=== PATIENT | female | born 1955 | race Caucasian/White ===

== ENCOUNTER 2022-08-20 23:39 | Observation (INO) | payer MEDICARE, SELFPAY ==
[2022-08-20 23:51] VITALS: BP 209/80; PULSE 51; RESP 20; TEMP 36.4; O2SAT 93; BMI 33.5
[2022-08-20 23:52] VITALS: O2SAT 93
[2022-08-20 23:53] VITALS: BP 209/80; PULSE 51; PULSE 57; RESP 14; RESP 15; O2SAT 93
[2022-08-21] VITALS (24 sets, daily range): BP systolic 140–193; BP diastolic 60–86; PULSE 45–85; RESP 13–26; TEMP 36.3–36.7; O2SAT 86–98; BMI 32.4
--- NOTE | 2022-08-21 00:34 | ED_ITS ---
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 Presents with complaint of dizziness. Room spinning. Worse when she moves her head. No visual complaint. No fever. Yesterday states it was mild but today is constant. Nausea asscicated with the dizziness MD elicited complaint: Reports dizziness Related Data Home Medications Medication Instructions Recorded Confirmed atorvastatin 40 mg tablet 40 mg PO DAILY 08/20/22 08/20/22 clopidogrel 75 mg tablet 75 mg PO DAILY 08/20/22 08/20/22 lisinopril 20 mg tablet 20 mg PO DAILY 08/20/22 08/20/22 Allergies Allergy/AdvReac Type Severity Reaction Status Date / Time No Known Drug Allergies Allergy Verified 08/20/22 23:56 Review of Systems ROS Status of ROS 10 or more systems reviewed and unremarkable except as noted in history and below Gastrointestinal Reports: nausea Neurological Reports: dizziness and vertigo [facility] Medical History (Updated 08/21/22 @ 03:14 by David Henson MD) Social History Smoking status: Never smoker Exam Constitutional Vital Signs - 24 hr 08/20/22 23:51 08/20/22 23:52 08/20/22 23:53 Temperature 97.6 F Pulse Rate 51 L Pulse Rate [Monitor] 51 L Respiratory Rate 20 15 Blood Pressure 209/80 H Blood Pressure [Left Arm] 209/80 H Pulse Oximetry 93 L 93 L Oxygen Delivery Method Room Air Oxygen Delivery Flow Rate 08/20/22 23:53 08/21/22 00:00 08/21/22 00:15 Temperature Pulse Rate 57 L 58 L 47 L Pulse Rate [Monitor] Respiratory Rate 14 18 16 Blood Pressure 170/70 H 176/76 H Blood Pressure [Left Arm] Pulse Oximetry 93 L 94 L 90 L Oxygen Delivery Method Oxygen Delivery Flow Rate 08/21/22 00:15 08/21/22 00:16 08/21/22 00:15 Temperature Pulse Rate 48 L Pulse Rate [Monitor] Respiratory Rate 21 Blood Pressure 176/76 H Blood Pressure [Left Arm] Pulse Oximetry 90 L 93 L 90 L Oxygen Delivery Method Room Air Nasal Cannula Oxygen Delivery Flow Rate 1 1 08/21/22 00:31 08/21/22 00:45 08/21/22 01:04 Temperature Pulse Rate 46 L Pulse Rate [Monitor] Respiratory Rate 23 Blood Pressure 153/60 H 161/86 H Blood Pressure [Left Arm] Pulse Oximetry 91 L 95 Oxygen Delivery Method Oxygen Delivery Flow Rate 08/21/22 01:10 08/21/22 01:15 08/21/22 01:15 Temperature Pulse Rate 45 L 48 L 47 L Pulse Rate [Monitor] Respiratory Rate 20 18 22 Blood Pressure 166/61 H Blood Pressure [Left Arm] Pulse Oximetry 93 L 94 L 93 L Oxygen Delivery Method Oxygen Delivery Flow Rate 08/21/22 01:30 08/21/22 02:55 08/21/22 01:30 Temperature Pulse Rate 51 L 61 Pulse Rate [Monitor] Respiratory Rate 16 22 Blood Pressure 166/63 H 166/63 H Blood Pressure [Left Arm] Pulse Oximetry 95 97 94 L Oxygen Delivery Method Room Air Oxygen Delivery Flow Rate 08/21/22 01:45 08/21/22 02:01 08/21/22 02:15 Temperature Pulse Rate 48 L 54 L 54 L Pulse Rate [Monitor] Respiratory Rate 26 H 21 22 Blood Pressure 152/66 H 140/71 H 150/67 H Blood Pressure [Left Arm] Pulse Oximetry 87 L 86 L 93 L Oxygen Delivery Method Oxygen Delivery Flow Rate 08/21/22 02:31 08/21/22 02:46 Temperature Pulse Rate 56 L 56 L Pulse Rate [Monitor] Respiratory Rate 19 16 Blood Pressure 193/65 H 175/66 H Blood Pressure [Left Arm] Pulse Oximetry 90 L 91 L Oxygen Delivery Method Oxygen Delivery Flow Rate Common normals: no apparent distress, average body habitus, oriented x3, healthy appearing, alert and well nourished [facility] Common normals: normocephalic and head/scalp atraumatic Eye Common normals: PERRL, EOMs intact bilaterally and conjunctivae normal Respiratory Common normals: normal respiratory effort, no retractions, no use of accessory muscles and clear to auscultation bilaterally Cardio Other: bradycardia GI Common normals: Normal to inspection, nondistended, normoactive bowel sounds present, soft to palpation and non-tender Extremity Common normals: normal to inspection, full ROM and no joint enlargement Neuro Common normals: oriented x3, CN's II-XII intact bilaterally, moves all extremities and no focal motor deficits Psych Appearance: grossly normal Course Vital Signs Vital signs: Vital Signs Temperature 97.6 F 08/20/22 23:51 Pulse Rate 51 L 08/20/22 23:51 Respiratory Rate 20 08/20/22 23:51 Blood Pressure 209/80 H 08/20/22 23:51 Pulse Oximetry 93 L 08/20/22 23:51 Oxygen Delivery Method Room Air 08/20/22 23:51 Temperature 97.6 F 08/20/22 23:51 Pulse Rate 56 L 08/21/22 02:46 Respiratory Rate 16 08/21/22 02:46 Blood Pressure 175/66 H 08/21/22 02:46 Pulse Oximetry 97 08/21/22 02:55 Oxygen Delivery Method Room Air 08/21/22 02:55 Oxygen Delivery Flow Rate 1 08/21/22 00:16 MDM - Dizziness MDM Narrative Medical decision making narrative: patient presents with acute vertigo. CT brain neg. Treated with ativan and ativert and she remains dizzy. Only able to sit up for a short while and then has to lay back down due to dizziness. Discussed with the hospitalist and will plan obs admission Lab Data Labs: Lab Results 08/21/22 Range/Units 00:00 WBC 8.5 (4.0-11.0) 10^3/uL RBC 4.77 (4.20-5.40) 10^6/uL Hgb 14.5 (12.0-16.0) g/dL Hct 43.2 (36.0-48.0) % MCV 90.6 (81.0-99.0) fL MCH 30.4 (26.7-34.0) pg MCHC 33.6 (29.9-35.2) g/dL RDW 13.6 (11.0-15.0) % Plt Count 245 (150-450) 10^3/uL MPV 10.6 (9.5-13.5) fL Neut % (Auto) 52.2 (43.0-75.0) % Lymph % (Auto) 37.7 (20.5-60.0) % [place] % (Auto) 7.2 (1.7-12.0) % Eos % (Auto) 2.5 (0.9-7.0) % Baso % (Auto) 0.2 (0.2-2.0) % Neut # (Auto) 4.4 (1.4-6.5) 10^3/uL Lymph # (Auto) 3.2 (1.2-3.8) 10^3/uL [place] # (Auto) 0.6 (0.3-0.8) 10^3/uL Eos # (Auto) 0.2 (0.0-0.7) 10^3/uL Baso # (Auto) 0.0 (0.0-0.1) 10^3/uL Abs Immat Gran (auto) 0.02 (0.00-0.03) 10^3/uL Imm/Tot Granulo (auto) 0.2 (0.0-0.5) % D-Dimer 0.36 (<=0.59) mg/L FEU Sodium 144 (136-145) mmol/L Potassium 3.3 L (3.5-5.1) mmol/L Chloride 104 (98-107) mmol/L Carbon Dioxide 31.4 (21.0-32.0) mmol/L Anion Gap 11.9 BUN 14.0 (7.0-18.0) mg/dL Creatinine 0.65 (0.55-1.02) mg/dL Est GFR ( Amer) >60 (>=60) Est GFR (Non-Af Amer) >60 (>=60) BUN/Creatinine Ratio 21.5 Glucose 119 H (74-106) mg/dL Calcium 9.6 (8.5-10.1) mg/dL Troponin I High Sens 5.0 (4.0-51.3) pg/mL NT-Pro-B Natriuret Pep 147.0 (<=900.0) pg/mL Discharge Plan Discharge Chief Complaint: Dizziness Clinical Impression: Vertigo Patient Disposition: Admitted As Inpatient
--- NOTE | 2022-08-21 00:38 | ECG_ITS ---
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
--- NOTE | 2022-08-21 00:38 | CT_ITS ---
The [address] [address] Patient Name: JEAN GASTON MRN: [id number] date: 1955 Sex: F Assigned Patient Location: ER Current Patient Location: ER Accession/Order Number: [id number] Exam Date: 08/21/2022 00:51 Report Date: 08/21/2022 01:29 At the request of: SAMUEL ANDRE Procedure: CT head/brain wo con INDICATION: 67 years old; Female. Dizziness. TECHNIQUE: CT Head (ax/cor/sag reformats). Ionizing radiation dose reduced via iterative reconstruction/FBP blend and body size kV/mA adjustment. Comparison: Head CT dated 08/27/2021. FINDINGS: POSTOPERATIVE CHANGES: None. BRAIN PARENCHYMA: No focal lesions. No mass effect. No midline shift or herniation. No intraparenchymal or extra-axial hemorrhage. Normal chaney/white differentiation. VENTRICLES/EXTRA-AXIAL SPACES: Normal for patient's age. SINUSES/MASTOIDS: Visualized sinuses are clear. Mastoid air cells are clear. MSK: No displaced or depressed calvarial fracture. OTHER: No hyperdense intraluminal thrombus is seen. IMPRESSION: 1. No acute intracranial abnormality. No hemorrhage or mass effect. If there is suspicion for intracranial infarction, then MRI with diffusion imaging would be more sensitive. Electronically authenticated by: ANA NGUYEN Date: 08/21/2022 01:29
--- NOTE | 2022-08-21 00:38 | XR_ITS ---
[address] [address] Patient Name: JEAN GASTON MRN: [id number] date: 1955 Sex: F Assigned Patient Location: ER Current Patient Location: ER Accession/Order Number: [id number] Exam Date: 08/21/2022 00:51 Report Date: 08/21/2022 01:19 At the request of: SAMUEL ANDRE Procedure: XR chest 1V EXAM: XR chest 1V HISTORY: dizziness COMPARISON: Chest x-ray 04/18/2019 TECHNIQUE: Single frontal view chest x-ray FINDINGS: No lung consolidation, large pleural effusions, pneumothorax, or acute bony abnormality. Cardiac size is unremarkable. Calcified plaque at the thoracic aortic knob. IMPRESSION: No radiographic evidence for acute chest abnormality. Electronically authenticated by: SAIDA CESAR Date: 08/21/2022 01:19
[2022-08-21 00:54] LABS: Basophils Percent Auto 0.2 % (0.2-2.0); Eosinophils Absolute Auto 0.2 10^3/uL (0.0-0.7); Eosinophils Percent Auto 2.5 % (0.9-7.0); Hematocrit 43.2 % (36.0-48.0); Hemoglobin 14.5 g/dL (12.0-16.0); Immature Granulocytes Abs Auto 0.02 10^3/uL (0.00-0.03); Immature Granulocytes Pct Auto 0.2 % (0.0-0.5); Lymphocytes Absolute Auto 3.2 10^3/uL (1.2-3.8); Lymphocytes Percent Auto 37.7 % (20.5-60.0); Mean Corpuscular HGB Conc 33.6 g/dL (29.9-35.2); Mean Corpuscular Hemoglobin 30.4 pg (26.7-34.0); Mean Corpuscular Volume 90.6 fL (81.0-99.0); Mean Platelet Volume 10.6 fL (9.5-13.5); Monocytes Absolute Auto 0.6 10^3/uL (0.3-0.8); Monocytes Percent Auto 7.2 % (1.7-12.0); Neutrophils Absolute Auto 4.4 10^3/uL (1.4-6.5); Neutrophils Percent Auto 52.2 % (43.0-75.0); Platelet Count 245 10^3/uL (150-450); Red Blood Count 4.77 10^6/uL (4.20-5.40); Red Cell Distribution Width 13.6 % (11.0-15.0); White Blood Count 8.5 10^3/uL (4.0-11.0)
[2022-08-21 01:01] LABS: D Dimer 0.36 mg/L FEU (<=0.59)
[2022-08-21 01:10] LABS: Anion Gap 11.9; BUN Creatinine Ratio 21.5; Calcium 9.6 mg/dL (8.5-10.1); Carbon Dioxide 31.4 mmol/L (21.0-32.0); Chloride 104 mmol/L (98-107); Estimated GFR (African America >60 (>=60); Estimated GFR (Non-African Ame >60 (>=60); Glucose 119 mg/dL (74-106); Potassium 3.3 mmol/L (3.5-5.1); Sodium 144 mmol/L (136-145)
[2022-08-21] MEDS: LORAZEPAM 2 MG/ML 1 ML VIAL 0.5 MG IV (01:33)
[2022-08-21] MEDS: MECLIZINE HCL 12.5 MG TABLET 25 MG PO ×3 (01:33→14:48)
[2022-08-21] MEDS: 0.9 % SODIUM CHLORIDE 1,000 ML 1000 ML IV (02:14)
--- NOTE | 2022-08-21 02:56 | PC.NURSE ---
pt placed on room air at this time to see how she does
--- NOTE | 2022-08-21 05:58 | W.PM.TELEPN ---
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 She denies any history of vertigo in the past, denies any ringing in the ears, she has chronic left-sided headaches that are unchanged, denies any visual field deficits, speech disturbance, facial droop, focal weakness, denies chest pain, palpitations, shortness of breath, syncope, seizures, abdominal pain, with her vertigo he gets worse with her head movement better if she states still, denies any bleeding, change in bowel urinary habits but reports some nausea when she has a vertigo home. Denies any change in her medications lately. Denies any falls lately or head trauma. Upon arrival to the ER patient is slightly hypertensive, afebrile, CT head without acute intracranial abnormalities per ER verbal report. Meclizine was given with minimal relief hospital Medicine was consulted for admission. Allergies: No known drug allergies Home medications aspirin daily atorvastatin 40 daily, Plavix 75 daily, lisinopril 20 daily past medical history: Hypertension, hypercholesterolemia, cerebrovascular accident, obesity past surgical history: Many years ago left lower extremity fracture with milagros placement review of systems: all 14 review of systems negative except for HPI physical exam: Vitals: BP 182/76, pulse 62, RR 18, temp 97.4?, 94% on room air, weight 96.8 kg general: Lying in bed, no acute distress, alert and oriented x3, appears stated age HEENT: Normocephalic, atraumatic, EOMI, trachea midline CVS: Regular rate and rhythm, no peripheral edema lungs: Bilateral air entry, normal respiratory effort abdomen: Soft, nontender, obese, no visible masses neuro: Close her eyes with head movement unsure if underlying nystagmus present, moves all extremities, no facial droop, reports decreased sensation to light touch left side body. Psych: Cooperative, alert and oriented, pleasant, normal mood Exam Constitutional Vital Signs - 24 hr 08/20/22 23:51 08/20/22 23:52 08/20/22 23:53 Temperature 97.6 F Pulse Rate 51 L Pulse Rate [Monitor] 51 L Respiratory Rate 20 15 Blood Pressure 209/80 H Blood Pressure [Left Arm] 209/80 H Blood Pressure [Right Arm] Pulse Oximetry 93 L 93 L Oxygen Delivery Method Room Air Oxygen Delivery Flow Rate 08/20/22 23:53 08/21/22 00:00 08/21/22 00:15 Temperature Pulse Rate 57 L 58 L 47 L Pulse Rate [Monitor] Respiratory Rate 14 18 16 Blood Pressure 170/70 H 176/76 H Blood Pressure [Left Arm] Blood Pressure [Right Arm] Pulse Oximetry 93 L 94 L 90 L Oxygen Delivery Method Oxygen Delivery Flow Rate 08/21/22 00:15 08/21/22 00:16 08/21/22 00:15 Temperature Pulse Rate 48 L Pulse Rate [Monitor] Respiratory Rate 21 Blood Pressure 176/76 H Blood Pressure [Left Arm] Blood Pressure [Right Arm] Pulse Oximetry 90 L 93 L 90 L Oxygen Delivery Method Room Air Nasal Cannula Oxygen Delivery Flow Rate 1 1 08/21/22 00:31 08/21/22 00:45 08/21/22 01:04 Temperature Pulse Rate 46 L Pulse Rate [Monitor] Respiratory Rate 23 Blood Pressure 153/60 H 161/86 H Blood Pressure [Left Arm] Blood Pressure [Right Arm] Pulse Oximetry 91 L 95 Oxygen Delivery Method Oxygen Delivery Flow Rate 08/21/22 01:10 08/21/22 01:15 08/21/22 01:15 Temperature Pulse Rate 45 L 48 L 47 L Pulse Rate [Monitor] Respiratory Rate 20 18 22 Blood Pressure 166/61 H Blood Pressure [Left Arm] Blood Pressure [Right Arm] Pulse Oximetry 93 L 94 L 93 L Oxygen Delivery Method Oxygen Delivery Flow Rate 08/21/22 01:30 08/21/22 02:55 08/21/22 01:30 Temperature Pulse Rate 51 L 61 Pulse Rate [Monitor] Respiratory Rate 16 22 Blood Pressure 166/63 H 166/63 H Blood Pressure [Left Arm] Blood Pressure [Right Arm] Pulse Oximetry 95 97 94 L Oxygen Delivery Method Room Air Oxygen Delivery Flow Rate 08/21/22 01:45 08/21/22 02:01 08/21/22 02:15 Temperature Pulse Rate 48 L 54 L 54 L Pulse Rate [Monitor] Respiratory Rate 26 H 21 22 Blood Pressure 152/66 H 140/71 H 150/67 H Blood Pressure [Left Arm] Blood Pressure [Right Arm] Pulse Oximetry 87 L 86 L 93 L Oxygen Delivery Method Oxygen Delivery Flow Rate 08/21/22 02:31 08/21/22 02:46 08/21/22 03:57 Temperature 97.4 F L Pulse Rate 56 L 56 L 61 Pulse Rate [Monitor] Respiratory Rate 19 16 18 Blood Pressure 193/65 H 175/66 H Blood Pressure [Left Arm] Blood Pressure [Right Arm] 182/76 H Pulse Oximetry 90 L 91 L 94 L Oxygen Delivery Method Room Air Oxygen Delivery Flow Rate 08/21/22 03:57 08/21/22 02:46 08/21/22 03:00 Temperature Pulse Rate 56 L 55 L Pulse Rate [Monitor] 61 Respiratory Rate 18 17 23 Blood Pressure 175/66 H 190/86 H Blood Pressure [Left Arm] Blood Pressure [Right Arm] Pulse Oximetry 94 L 94 L 98 Oxygen Delivery Method Room Air Oxygen Delivery Flow Rate 08/21/22 03:16 08/21/22 03:31 Temperature Pulse Rate 48 L Pulse Rate [Monitor] Respiratory Rate 13 Blood Pressure 155/81 H 183/75 H Blood Pressure [Left Arm] Blood Pressure [Right Arm] Pulse Oximetry 94 L Oxygen Delivery Method Oxygen Delivery Flow Rate Progress Note: Objective Labs Labs: Short CBC 08/21/22 Range/Units 00:00 WBC 8.5 (4.0-11.0) 10^3/uL Hgb 14.5 (12.0-16.0) g/dL Hct 43.2 (36.0-48.0) % Plt Count 245 (150-450) 10^3/uL BMP 08/21/22 00:00 Sodium 144 Potassium 3.3 L Chloride 104 Carbon Dioxide 31.4 BUN 14.0 Creatinine 0.65 Glucose 119 H Calcium 9.6 Progress Note: A&P Assessment and Plan (1) Vertigo: Assessment and Plan: admit to telemetry bed with neuro checks, suspect benign positional vertigo. Supportive care with meclizine, thiamine, Phenergan and Zofran as needed. Vestibular therapy. Check brain MRI rule out posterior CVA. Fall precautions. (2) High blood pressure: Assessment and Plan: Order home lisinopril with as needed hydralazine. Consider adding low-dose Norvasc and monitor and vitals closely, need blood pressure monitor upon discharge (3) Stroke: Assessment and Plan: personal history of CVA on aspirin, Plavix and Lipitor. Need better blood pressure management control. Check A1c level, encourage weight loss. Check brain MRI Plan DVT prophylaxis-Lovenox medications reconciliation form completed goals of care-full code communications: Discussed with emergency room physician, bedside nurse, patient updated about plan of care, all questions answered to their satisfaction disposition -home when medically stable telemedicine clause: as a provider of this telehealth evaluation requested by the patient's evaluating physician. I attest that I introduced myself to the patient. Provided my credentials and determined that telemedicine via real-time 2 way interactive audio and video platform his and appropriate and effective means of providing this service. I reviewed the patient's chart and had a discussion with the member of the patient's treatment team. The patient and I mutually agreed with continuation of this evaluation via telemedicine. The patient consented for the telemedicine evaluation. This virtual encounter was taking place from [place]. The encounter was approximately 30 minutes. The nurse was present during the entire time of the encounter and was able to move the stethoscope and appropriate directions. The patient was evaluated at 5:30 a.m. Fall Risk Details Morales Fall Scale Risk Level: High Fall Risk Current Medications: Current Medications Acetaminophen (Acetaminophen 325 Mg Tablet) 650 mg PO Q6H PRN PRN Reason: Fever Enoxaparin Sodium (Enoxaparin Sodium 40 Mg/0.4 Ml Syringe) 40 mg SUBQ QD JACOBO Famotidine (Famotidine/Pf 20 Mg/2 Ml Vial) 20 mg IV Q12H JACOBO Meclizine HCl (Meclizine Hcl 12.5 Mg Tablet) 25 mg PO Q6H PRN PRN Reason: Vertigo Ondansetron HCl (Ondansetron Pf 4 Mg/2 Ml Vial) 4 mg IV Q6H PRN PRN Reason: Nausea And Vomiting Promethazine HCl (Promethazine Hcl 25 Mg Tablet) 25 mg PO Q6H PRN PRN Reason: Nausea And Vomiting Thiamine Mononitrate (Thiamine Mononitrate (Vit B1) 100 Mg Tablet) 100 mg PO QD JACOBO Time Spent With Patient Time: Total time spent is greater than 50% in coordination of care (as documented) at patient's floor/unit and/or counseling patient: Time with patient: 25 - 35 minutes Telemedicine Attestation Telemedicine Attestation I conducted this encounter from [ [place]] via secure live, [id number] video conference with the patient, CHARGE TEST-CHARGES located at [facility] with [ telemedicine]. Prior to the interview, the risks and benefits of telemedicine were discussed with the patient and verbal consent was obtained.
[2022-08-21] MEDS: ENOXAPARIN SODIUM 40 MG/0.4 ML SYRINGE SUBQ (06:52)
[2022-08-21] MEDS: AMLODIPINE BESYLATE 5 MG TABLET PO (06:55)
[2022-08-21] MEDS: THIAMINE MONONITRATE (VIT B1) 100 MG TABLET PO (06:55)
[2022-08-21] MEDS: FAMOTIDINE/PF 20 MG/2 ML VIAL IV (06:56)
--- NOTE | 2022-08-21 09:10 | P.HP_ITS ---
H&P: HPI History of Present Illness Chief complaint: DIZZINESS Narrative: Patient presented to the emergency room with increasing dizziness, vertigo type, patient does have a history of CVA in the past. Did not have dizziness like this with her previous CVA. She has resultant left-sided weakness from the previous CVA. [facility] Medical History (Updated 08/21/22 @ 04:45 by Karin Urias) Surgical History (Updated 08/21/22 @ 04:45 by Karin Urias) Social History Smoking status: Never smoker Meds Home Medications and Allergies Home Medications Medication Instructions Recorded Confirmed Type atorvastatin 40 mg tablet 40 mg PO DAILY 08/20/22 08/21/22 History clopidogrel 75 mg tablet 75 mg PO DAILY 08/20/22 08/21/22 History lisinopril 20 mg tablet 20 mg PO DAILY 08/20/22 08/21/22 History aspirin 81 mg tablet,delayed 81 mg PO DAILY 08/21/22 08/21/22 History release (Adult Low Dose Aspirin) carvedilol 6.25 mg tablet 6.25 mg PO BID #60 tabs 08/21/22 Rx meclizine 12.5 mg tablet 25 mg PO Q6H #20 tabs 08/21/22 Rx Allergies Allergy/AdvReac Type Severity Reaction Status Date / Time No Known Drug Allergies Allergy Verified 08/21/22 04:37 Exam Constitutional Vital Signs - 24 hr 08/20/22 23:51 08/20/22 23:52 08/20/22 23:53 Temperature 97.6 F Pulse Rate 51 L Pulse Rate [Monitor] 51 L Respiratory Rate 20 15 Blood Pressure 209/80 H Blood Pressure [Left Arm] 209/80 H Blood Pressure [Right Arm] Pulse Oximetry 93 L 93 L Oxygen Delivery Method Room Air Oxygen Delivery Flow Rate 08/20/22 23:53 08/21/22 00:00 08/21/22 00:15 Temperature Pulse Rate 57 L 58 L 47 L Pulse Rate [Monitor] Respiratory Rate 14 18 16 Blood Pressure 170/70 H 176/76 H Blood Pressure [Left Arm] Blood Pressure [Right Arm] Pulse Oximetry 93 L 94 L 90 L Oxygen Delivery Method Oxygen Delivery Flow Rate 08/21/22 00:15 08/21/22 00:16 06/08/23 00:15 Temperature Pulse Rate 48 L Pulse Rate [Monitor] Respiratory Rate 21 Blood Pressure 176/76 H Blood Pressure [Left Arm] Blood Pressure [Right Arm] Pulse Oximetry 90 L 93 L 90 L Oxygen Delivery Method Room Air Nasal Cannula Oxygen Delivery Flow Rate 1 1 08/21/22 00:31 08/21/22 00:45 08/21/22 01:04 Temperature Pulse Rate 46 L Pulse Rate [Monitor] Respiratory Rate 23 Blood Pressure 153/60 H 161/86 H Blood Pressure [Left Arm] Blood Pressure [Right Arm] Pulse Oximetry 91 L 95 Oxygen Delivery Method Oxygen Delivery Flow Rate 08/21/22 01:10 08/21/22 01:15 08/21/22 01:15 Temperature Pulse Rate 45 L 48 L 47 L Pulse Rate [Monitor] Respiratory Rate 20 18 22 Blood Pressure 166/61 H Blood Pressure [Left Arm] Blood Pressure [Right Arm] Pulse Oximetry 93 L 94 L 93 L Oxygen Delivery Method Oxygen Delivery Flow Rate 08/21/22 01:30 08/21/22 02:55 08/21/22 01:30 Temperature Pulse Rate 51 L 61 Pulse Rate [Monitor] Respiratory Rate 16 22 Blood Pressure 166/63 H 166/63 H Blood Pressure [Left Arm] Blood Pressure [Right Arm] Pulse Oximetry 95 97 94 L Oxygen Delivery Method Room Air Oxygen Delivery Flow Rate 08/21/22 01:45 08/21/22 02:01 08/21/22 02:15 Temperature Pulse Rate 48 L 54 L 54 L Pulse Rate [Monitor] Respiratory Rate 26 H 21 22 Blood Pressure 152/66 H 140/71 H 150/67 H Blood Pressure [Left Arm] Blood Pressure [Right Arm] Pulse Oximetry 87 L 86 L 93 L Oxygen Delivery Method Oxygen Delivery Flow Rate 08/21/22 02:31 08/21/22 02:46 08/21/22 03:57 Temperature 97.4 F L Pulse Rate 56 L 56 L 61 Pulse Rate [Monitor] Respiratory Rate 19 16 18 Blood Pressure 193/65 H 175/66 H Blood Pressure [Left Arm] Blood Pressure [Right Arm] 182/76 H Pulse Oximetry 90 L 91 L 94 L Oxygen Delivery Method Room Air Oxygen Delivery Flow Rate 08/21/22 03:57 08/21/22 02:46 08/21/22 03:00 Temperature Pulse Rate 56 L 55 L Pulse Rate [Monitor] 61 Respiratory Rate 18 17 23 Blood Pressure 175/66 H 190/86 H Blood Pressure [Left Arm] Blood Pressure [Right Arm] Pulse Oximetry 94 L 94 L 98 Oxygen Delivery Method Room Air Oxygen Delivery Flow Rate 08/21/22 03:16 08/21/22 03:31 Temperature Pulse Rate 48 L Pulse Rate [Monitor] Respiratory Rate 13 Blood Pressure 155/81 H 183/75 H Blood Pressure [Left Arm] Blood Pressure [Right Arm] Pulse Oximetry 94 L Oxygen Delivery Method Oxygen Delivery Flow Rate HENMT Common normals: moist oral mucous membranes Eye General eye: normal appearance of both eyes and other (Nystagmus on bilateral conjugate gaze) Chest Common normals: inspection of chest normal Respiratory Common normals: no retractions, no use of accessory muscles and clear to auscultation bilaterally Cardio Common normals: regular rate, regular rhythm and S1 normal heart sound Neuro Common normals: oriented x3 (Definite left-sided weakness but that has been unchanged from her prio) Results Labs Labs: Short CBC 08/21/22 Range/Units 00:00 WBC 8.5 (4.0-11.0) 10^3/uL Hgb 14.5 (12.0-16.0) g/dL Hct 43.2 (36.0-48.0) % Plt Count 245 (150-450) 10^3/uL BMP 08/21/22 00:00 Sodium 144 Potassium 3.3 L Chloride 104 Carbon Dioxide 31.4 BUN 14.0 Creatinine 0.65 Glucose 119 H Calcium 9.6 Assessment and Plan Assessment and Plan (1) Vertigo: (2) High blood pressure: (3) Stroke: Plan Vertigo type symptoms, not near syncope, not significantly improved in ER-still concerning for posterior fossa old CVA-check MRI scan of brain, physical therapy to work with patient, try meclizine [id number], 1 dose of steroids Uncontrolled hypertension-continue with home medications plus increase with the addition of Coreg and as needed hydralazine Hypokalemia-supplement We will check MRI scanIn physical therapy to work with patient, if improved she can be discharged home in improving condition. Medications see list. Follow-up with your PCP as an outpatient.
[2022-08-21] MEDS: CLOPIDOGREL BISULFATE 75 MG TABLET PO (09:32)
[2022-08-21] MEDS: CARVEDILOL 6.25 MG TABLET PO (09:32)
[2022-08-21] MEDS: LISINOPRIL 20 MG TABLET PO (09:33)
[2022-08-21] MEDS: ASPIRIN 81 MG TABLET.DR PO (09:33)
[2022-08-21] MEDS: POTASSIUM CHLORIDE 10 MEQ ER TABLET 20 MEQ PO (09:34)
--- NOTE | 2022-08-21 09:42 | CM.NOTE ---
Rounds made with Dr. Jonas. Plan is for an MRI today along with PT evaluation. Currently Tamiko lives at home with son and family. She is independent in the home. No needs identified. Potential discharge later today.
--- NOTE | 2022-08-21 10:24 | SWNOTE1 ---
SW met with pt to discuss dc needs. Pt does live at home with her family (son, daughter in law). Pt does not use any medical equipment at home and stays on 1 floor. Pt is not current with any HH and at this time does not feel she needs any. Pt stated she is feeling a little better and was able to move her head side to side without feeling dizzy. At this time pt denies any needs at discharge. SW to follow as needed. SW reviewed BAXTER form with pt, she voiced understanding. Pt signed form, original given to patient and copy placed in chart.
[2022-08-21] MEDS: DEXAMETHASONE SODIUM PHOSPHATE 4 MG/ML VIAL 8 MG IV (10:38)
--- NOTE | 2022-08-21 11:40 | MR_ITS ---
The [address] [address] Patient Name: JEAN GASTON MRN: [id number] date: 1955 Sex: F Assigned Patient Location: MS Current Patient Location: MS Accession/Order Number: [id number] Exam Date: 08/21/2022 11:40 Report Date: 08/21/2022 13:12 At the request of: DEANDRE DUNCAN Procedure: MR head/brain wo con EXAM: MR head/brain wo con HISTORY: Vertigo, acute nausea with dizziness, history of prior stroke COMPARISON: CT head 08/21/2022. TECHNIQUE: Multiplanar multisequence MR imaging of the brain was performed without intravenous contrast. FINDINGS: Calvarium/skull base: No focal marrow replacing lesion suggestive of neoplasm. Orbits: Grossly unremarkable. Paranasal sinuses: Imaged portions clear Brain: No restricted diffusion. Minimal (less than 5) T2 FLAIR signal hyperintensities are present involving supratentorial white matter considered within normal limits for patient's age, most commonly relating to sequela small vessel disease. No mass effect, hemorrhage, or hydrocephalus. Grossly normal flow-related signal in the major intracranial arteries and dural sinuses. IMPRESSION: No acute intracranial process. Specifically no evidence for acute ischemia. Electronically authenticated by: AMILCAR YUAN Date: 08/21/2022 13:12
--- NOTE | 2022-08-27 10:22 | CM.DCFOLLOWU ---
Person spoke with: daughter in law How are you feeling? pt feeling well How is your pain? no pain or dizziness Did you understand your discharge instructions? yes Do you have any questions about your discharge instructions? No Were you given any prescriptions at discharge? Yes Were you able to get your prescriptions filled? Yes Do you understand how to take your medications as ordered? Yes Do you have any questions about your follow up appointment and do you plan to keep your follow up appointment? Follow up with PCP on 09/02/22 Is there anything else that you would like to discuss? No Questions/Comments/Concerns/Other:
== END 2022-08-21 17:58 | disposition home or self-care (01) ==
LOC: ER 08-21 03:14 → MS 08-21 03:54
PROVIDERS: Admitting Provider Family Medicine; Emergency Provider Internal Medicine; Visit Provider Internal Medicine
DX: R42 Dizziness and giddiness (principal); I10 Essential (primary) hypertension; E87.6 Hypokalemia; E78.00 Pure hypercholesterolemia, unspecified; E66.9 Obesity, unspecified; Z79.02 Long term (current) use of antithrombotics/antiplatelets; I69.954 Hemiplegia and hemiparesis following unspecified cerebrovascular disease affecting left non-dominant side; Z79.82 Long term (current) use of aspirin; Z79.899 Other long term (current) drug therapy; Z68.32 Body mass index [BMI] 32.0-32.9, adult
CPT/HCPCS: 36415; 70450; 70551; 71045; 80048; 83880; 84484; 85025; 85378; 93005; 96361; 96372; 96374; 96375; 97161; 97530; 99285; G0378; Q3014

== ENCOUNTER 2023-03-19 16:02 | Emergency (ER) | payer MEDICARE, SELFPAY ==
[2023-03-19 16:19] VITALS: BP 155/84; PULSE 64; RESP 18; TEMP 36.6; O2SAT 97; BMI 36.6
--- NOTE | 2023-03-19 16:35 | CT_ITS ---
The [address] [address] Patient Name: JEAN GASTON MRN: [id number] date: 1955 Sex: F Assigned Patient Location: ED.MAIN Current Patient Location: Accession/Order Number: [id number] Exam Date: 03/19/2023 16:48 Report Date: 03/19/2023 17:28 At the request of: DEWEY MARLEY Procedure: CT head/brain wo con CLINICAL HISTORY: fall. EXAMINATION: Unenhanced CT scan of the brain 03/19/2023. COMPARISON: Unenhanced CT scan of the brain 08/21/2022. TECHNIQUE: 3 mm axial images from skull base through vertex without intravenous contrast were obtained. Sagittal and coronal reconstructions were also performed. FINDINGS: The visualized intraorbital contents remain normal. There is mild prominence to ventricles, sulcal, cisternal spaces without discrete acute infarct. There is no intra or extra-axial hemorrhage. No definite mass, mass effect, or midline shift is seen. There is some soft tissue swelling overlying the left zygomatic arch and left frontal bone. The visualized paranasal sinuses and mastoid air cells appear normal. The calvarium appears intact. CT/CT head/brain wo con IMPRESSION: 1. No acute infarct, hemorrhage, or acute intracranial injury. 2. No definite skull fractures. 3. There is some soft tissue swelling and hematoma overlying the left frontal bone. Electronically authenticated by: TERESA ESTRADA Date: 03/19/2023 17:28
--- NOTE | 2023-03-19 16:35 | CT_ITS ---
The [address] [address] Patient Name: JEAN GASTON MRN: [id number] date: 1955 Sex: F Assigned Patient Location: ER Current Patient Location: ER Accession/Order Number: [id number] Exam Date: 03/19/2023 16:48 Report Date: 03/19/2023 17:37 At the request of: DEWEY MARLEY Procedure: CT facial bones wo con EXAM: CT facial bones wo con HISTORY: fall with bruising and swelling of face. COMPARISON: None. TECHNIQUE: Unenhanced maxillofacial CT with axial, coronal and sagittal MPR reconstructions. FINDINGS: No evidence of maxillofacial fracture. Left periorbital hematoma. Intraorbital contents are intact bilaterally. The paranasal sinuses are clear. CT/CT facial bones wo con IMPRESSION: 1. No evidence of maxillofacial fracture. 2. Left periorbital hematoma. Electronically authenticated by: KRYSTLE PIERRE Date: 03/19/2023 17:37
--- NOTE | 2023-03-19 16:37 | ED_ITS ---
HPI - Fall General Chief Complaint: Fall Stated Complaint: FALL Time Seen by Provider: 03/19/23 16:09 Source: patient Mode of arrival: walk-in Limitations: no limitations History of Present Illness HPI Narrative: Patient is a 67-year-old female who presents to the emergency department for the evaluation of an injury to the face and head earlier today. She states she is on aspirin and Plavix. She tripped over her feet and fell hitting the corner of the door. She had no loss of consciousness. She was able to eat lunch immediately after with no difficulty, no visual changes, neck pain, back pain, extremity pain or paresthesias. She has had no nausea or vomiting. She sustained a small abrasion to the left synagogue and her forehead has been swollen with bruising around the left eye, she states because of the blood thinner she became concerned and came to the ER. She has not had any nosebleeds. Unknown last tetanus. Related Data Home Medications Medication Instructions Recorded Confirmed atorvastatin 40 mg tablet 40 mg PO DAILY 08/20/22 08/21/22 clopidogrel 75 mg tablet 75 mg PO DAILY 08/20/22 08/21/22 lisinopril 20 mg tablet 20 mg PO DAILY 08/20/22 08/21/22 aspirin 81 mg tablet,delayed 81 mg PO DAILY 08/21/22 08/21/22 release (Adult Low Dose Aspirin) Previous Rx's Medication Instructions Recorded carvedilol 6.25 mg tablet 6.25 mg PO BID #60 tabs 08/21/22 meclizine 12.5 mg tablet 25 mg (2 x 12.5 mg) PO Q6H #20 tabs 08/21/22 Allergies Allergy/AdvReac Type Severity Reaction Status Date / Time No Known Drug Allergies Allergy Verified 08/21/22 04:37 Review of Systems ROS Constitutional Denies: fever or chills Eyes Denies: change in vision Ears, nose, mouth, and throat Denies: throat pain or nasal congestion Cardiovascular Denies: chest pain Respiratory Denies: shortness of breath or cough Gastrointestinal Denies: nausea or vomiting Genitourinary Denies: painful urination Musculoskeletal Denies: back pain, neck pain, extremity pain or extremity swelling Integumentary/Breast Denies: rash Neurological Denies: headache, numbness in extremities or weakness in extremities Hematologic/Lymphatic Reports: easy bruising and easy bleeding PFSH PFS Medical History (Updated 03/19/23 @ 17:42 by DARVIN Garcia) Vertigo ?R42 - Dizziness and giddiness (ICD-10) Stroke ?I63.9 - Cerebral infarction, unspecified (ICD-10) High blood pressure ?I10 - Essential (primary) hypertension (ICD-10) Surgical History (Updated 08/21/22 @ 04:45 by Karin Urias) S/P ORIF (open reduction internal fixation) fracture ?Z98.890 - Other specified postprocedural states (ICD-10) ?Z87.81 - Personal history of (healed) traumatic fracture (ICD-10) History of carpal tunnel surgery ?Z98.890 - Other specified postprocedural states (ICD-10) History of hysterectomy ?Z90.710 - Acquired absence of both cervix and uterus (ICD-10) Social History Smoking status: Never smoker Exam Narrative Exam Narrative: Gen.: Awake, alert, in no distress Head: Normocephalic, swelling and ecchymosis noted to the left synagogue with a 0.5 cm abrasion. Scabbed over with no deep laceration or bleeding ENT: Moist mucous membranes; abrasion noted to the nose, ecchymosis noted at the left synagogue and orbit. Normal extraocular muscle motion. Posterior C-spine is nontender Respiratory: No respiratory distress Extremities: Moves extremities equally, no injuries noted Psych: Normal mood and affect Neuro: No focal neuro deficit Skin: Warm, dry, intact Constitutional Vital Signs, click to edit/add: Last Vital Signs Temp 98 F 03/19/23 16:19 Pulse 64 03/19/23 16:19 Resp 18 03/19/23 16:19 BP 155/84 H 03/19/23 16:19 Pulse Ox 97 03/19/23 16:19 O2 Del Method Room Air 03/19/23 16:19 Course Vital Signs Vital signs: Vital Signs Temperature 98 F 03/19/23 16:19 Pulse Rate 64 03/19/23 16:19 Respiratory Rate 18 03/19/23 16:19 Blood Pressure 155/84 H 03/19/23 16:19 Pulse Oximetry 97 03/19/23 16:19 Oxygen Delivery Method Room Air 03/19/23 16:19 Temperature 98 F 03/19/23 16:19 Pulse Rate 64 03/19/23 16:19 Respiratory Rate 18 03/19/23 16:19 Blood Pressure 155/84 H 03/19/23 16:19 Pulse Oximetry 97 03/19/23 16:19 Oxygen Delivery Method Room Air 03/19/23 16:19 MDM - Fall MDM Narrative Medical decision making narrative: CTs of the head and facial bones with no evidence of acute abnormalities, small areas of hematoma noted. Patient given education and reassurance to continue Tylenol, her tetanus was updated in the ER and bacitracin was applied to the left synagogue. Closed head injury instructions given. Follow-up with PCP and return to the ER if symptoms change or worsen. Medical Records Attestation: I reviewed the patient's medical records. Imaging Data CT scan - head: Attestation: I have reviewed the pertinent imaging results. Radiologist's impression: Procedure: CT head/brain wo con CLINICAL HISTORY: fall. EXAMINATION: Unenhanced CT scan of the brain 03/19/2023. COMPARISON: Unenhanced CT scan of the brain 08/21/2022. TECHNIQUE: 3 mm axial images from skull base through vertex without intravenous contrast were obtained. Sagittal and coronal reconstructions were also performed. FINDINGS: The visualized intraorbital contents remain normal. There is mild prominence to ventricles, sulcal, cisternal spaces without discrete acute infarct. There is no intra or extra-axial hemorrhage. No definite mass, mass effect, or midline shift is seen. There is some soft tissue swelling overlying the left zygomatic arch and left frontal bone. The visualized paranasal sinuses and mastoid air cells appear normal. The calvarium appears intact. IMPRESSION: 1. No acute infarct, hemorrhage, or acute intracranial injury. 2. No definite skull fractures. 3. There is some soft tissue swelling and hematoma overlying the left frontal bone. Electronically authenticated by: TERESA ESTRADA Date: 03/19/2023 17:28 Procedure: CT facial bones wo con EXAM: CT facial bones wo con HISTORY: fall with bruising and swelling of face. COMPARISON: None. TECHNIQUE: Unenhanced maxillofacial CT with axial, coronal and sagittal MPR reconstructions. FINDINGS: No evidence of maxillofacial fracture. Left periorbital hematoma. Intraorbital contents are intact bilaterally. The paranasal sinuses are clear. IMPRESSION: 1. No evidence of maxillofacial fracture. 2. Left periorbital hematoma. Electronically authenticated by: KRYSTLE PIERRE Date: 03/19/2023 17:37 Discharge Plan Discharge Chief Complaint: Fall Clinical Impression: Closed head injury, Facial contusion Patient Disposition: Home, Self-Care Time of Disposition Decision: 17:42 Condition: Good Prescriptions / Home Meds: No Action atorvastatin 40 mg tablet 40 mg PO DAILY clopidogrel 75 mg tablet 75 mg PO DAILY lisinopril 20 mg tablet 20 mg PO DAILY aspirin [Adult Low Dose Aspirin] 81 mg tablet,delayed release (DR/EC) 81 mg PO DAILY carvedilol 6.25 mg Tablet 6.25 mg PO BID Qty: 60 0RF meclizine 12.5 mg Tablet 25 mg PO Q6H Qty: 20 0RF Instructions: Head Injury (ED), Facial Contusion (ED) Stand Alone Forms: Portal Instructions Referrals: Physician,Non-Staff, MD [Physician] - 1 week
[2023-03-19] MEDS: BACITRACIN 0.9 GM PACKET 1 PACKET TOPICAL (17:02)
[2023-03-19] MEDS: ADACEL DIPH,PERTUSS(ACELL),TET VAC/PF 0.5 ML ADULT SYRINGE IM (17:03)
== END 2023-03-19 17:46 | disposition home or self-care (01) ==
PROVIDERS: Emergency Provider Emergency Medicine; PCP Family Medicine
DX: S09.8XXA Other specified injuries of head, initial encounter (principal); S00.83XA Contusion of other part of head, initial encounter; W01.198A Fall on same level from slipping, tripping and stumbling with subsequent striking against other object, initial encounter; I10 Essential (primary) hypertension; Z86.73 Personal history of transient ischemic attack (TIA), and cerebral infarction without residual deficits; Z98.890 Other specified postprocedural states; Z87.81 Personal history of (healed) traumatic fracture; Z79.82 Long term (current) use of aspirin; Z79.02 Long term (current) use of antithrombotics/antiplatelets; Z79.899 Other long term (current) drug therapy; Z90.710 Acquired absence of both cervix and uterus
CPT/HCPCS: 70450; 70486; 90471; 90715; 99284

== ENCOUNTER 2023-10-06 07:44 | Outpatient (OUT) | payer MEDICARE, SELFPAY ==
--- OUTSIDE RECORDS SUMMARY | 2023-10-06 07:49 | XMS_ITS | CCD ---
Author Organization [facility] Care Team Providers Care Document Clerk Name Role Phone DR ELEUTERIO GAFFNEY Primary Care Unavailable RAY LO Admitting Unavailable RAY LO Attending Unavailable RAY OL Consulting Unavailable SAIDA VILLARREAL Consulting Unavailable Grover Simons Primary Care Physician [phone] Grover Simons Attending Unavailable Grover Simons Attending Unavailable Elisabet Vázquez Attending Unavailable Grover Simons Attending Unavailable Grover Simons Attending Unavailable Grover Simons Attending Unavailable Grover Simons Attending Unavailable Allergies Allergy Classification Reported Allergen(s) Allergy Type Date of Onset Reaction(s) Facility (1 source) No Known Medication Allergies; Translations: [No Known Medication Allergies] Propensity to adverse reactions (disorder) [facility] Repository Medications Current Medications Medication Drug Class(es) Dates Sig (Normalized) Sig (Original) aspirin 81 mg delayed release oral tablet (2 sources) Platelet Aggregation Inhibitor, Nonsteroidal Anti-inflammatory Drug Start: 08-28-2022 take 1 tablet by mouth once daily aspirin 81 mg Oral EC Tab 81 mg = 1 tab(s), Oral, Daily, Refills(s) 0 Start Date: 08/28/22 Status: Ordered atorvastatin 40 mg oral tablet (2 sources) HMG-CoA Reductase Inhibitor Start: 04-27-2023 take 1 tablet by mouth once daily atorvastatin 40 mg Tab 40 mg = 1 tab(s), Oral, Daily, # 90 tab(s), Refills(s) 1, Pharmacy: [facility], 168, cm, 04/27/23 12:58:00 EST, Height/Length Dosing, 101.2, kg, 04/27/23 12:58:00 EST, Weight Dosing Start Date: 04/27/23 Status: Ordered Start: 09-18-2022 take 1 tablet by sakshi th once daily atorvastatin 40 mg Tab 40 mg = 1 tab(s), Oral, Daily, # 90 tab(s), Refills(s) 0, Pharmacy: [facility], 167.3, cm, 09/02/22 13:53:00 EDT, Height/Length Dosing, 96.5, kg, 09/02/22 13:53:00 EDT, Weight Dosing Start Date: 09/18/22 Status: Ordered clopidogrel 75 mg oral tablet (2 sources) [id number] Platelet Inhibitor Start: 04-27-2023 take 1 tablet by mouth once daily clopidogrel 75 mg Tab 75 mg = 1 tab(s), Oral, Daily, # 90 tab(s), Refills(s) 1, Pharmacy: [facility], 168, cm, 04/27/23 12:58:00 EST, Height/Length Dosing, 101.2, kg, 04/27/23 12:58:00 EST, Weight Dosing Start Date: 04/27/23 Status: Ordered Start: 09-18-2022 take 1 tablet by sakshi once daily clopidogrel 75 mg Tab 75 mg = 1 tab(s), Oral, Daily, # 90 tab(s), Refills(s) 1, [facility], 167.3, cm, 09/02/22 13:53:00 EDT, Height/Length Dosing, 96.5, kg, 09/02/22 13:53:00 EDT, Weight Dosing Start Date: 09/18/22 Status: Ordered lisinopril 40 mg oral tablet (2 sources) Angiotensin Converting Enzyme Inhibitor Start: 07-02-2023 take 1 tablet by mouth once daily lisinopril 40 mg Tab 40 mg = 1 tab(s), Oral, Daily, # 90 tab(s), Refills(s) 3, Pharmacy: [facility], 168, cm, 04/27/23 12:58:00 EST, Height/Length Dosing, 101.2, kg, 04/27/23 12:58:00 EST, Weight Dosing Start Date: 07/02/23 Status: Ordered Start: 09-18-2022 take 1 tablet by sakshi once daily lisinopril 40 mg Tab 40 mg = 1 tab(s), Oral, Daily, # 90 tab(s), Refills(s) 0, Pharmacy: [facility], 167.3, cm, 09/02/22 13:53:00 EDT, Height/Length Dosing, 96.5, kg, 09/02/22 13:53:00 EDT, Weight Dosing Start Date: 09/18/22 Status: Ordered Problems Problem Classification Problem Date Documented Date Episodic/Chronic Acute cerebrovascular disease (1 source) 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 Anxiety disorders (1 source) Anxiety 08-28-2022 Chronic Conditions associated with dizziness or vertigo (4 sources) Dizziness and giddiness; Translations: [DIZZINESS AND GIDDINESS] Onset: 2 Episodic Disorders of lipid metabolism (2 sources) Hypercholesterolemia 08-28-2022 Chronic E Codes: Fall (1 source) Fall in home 03-23-2023 Essential hypertension (3 sources) Essential (primary) hypertension; Translations: [Essential hypertension] Onset: 2 09-02-2022 Chronic Nutritional deficiencies (2 sources) Vitamin D deficiency 08-28-2022 Chronic Other aftercare (1 source) Other medical terminologist (current) drug therapy; Translations: [OTH LONG-TERM CURRENT DRUG THERAPY] Onset: 2 Episodic Other aftercare (1 source) roasterman (current) use of aspirin; Translations: [APPLICATION INTERNSHIP CURRENT USE OF ASPIRIN] Onset: 2 Episodic Other aftercare (1 source) [facility] (current) use of antithrombotics/antiplate lets; Translations: [LONG-TERM ANTITHROMBOT/ANTIPLATLETS ] Onset: 2 Episodic Other circulatory disease (1 source) Personal history of transient ischemic attack (TIA), and cerebral infarction without residual deficits; Translations: [PERS HX TIA AND CI NO RESID DEFICIT] Onset: 2 Episodic Other circulatory disease (1 source) History of cerebrovascular accident without residual deficits 10-28-2022 Episodic Other nutritional; endocrine; and metabolic disorders (1 source) Body mass index 30+ - obesity 09-28-2023 Chronic Residual codes; unclassified (1 source) Patient's other noncompliance with medication regimen; Translations: [PT OTH NONCOMPLIANCE W/ MED REGIMEN] Onset: 2 Episodic Screening and history of mental health and substance abuse codes (1 source) Personal history of nicotine dependence; Translations: [PERSONAL HISTORY OF NICOTINE DEPEND] Onset: 2 Episodic Unclassified (1 source) Colon cancer screening declined 11-18-2022 Results Test Name Value Interpretation Reference Range Facil ity Interdisciplinary Note - Soc ial Workeron 09-28-2023 Interdisciplinary Note - Vault Custodian Interdisciplinary Note - Vault Custodian Consult for positive depression screen received in error. Upon chart review it is noted that patient's depression screen score was 0. No needs at this time. SW will remain available. Normal [facility] Retail - Clinical Noteon Retail - Clinical Note [id number] Normal [facility] Ambulatory Visit Summaryon 0 04-27-2023 Ambulatory Visit Summary JEAN GASTON :1955 Visit Date:04/27/2023 Ambulatory Visit Instructions Your Diagnosis Primary hypertension Adult BMI 35.0-35.9 kg/sq m Class 1 obesity due to excess calories in adult Nonsmoker Hypercholesterolemia Your Care Team Attending Physician - Grover Simons MD Primary Care Physician - Grover Simons MD This Is Your Medications List atorvastatin (atorvastatin 40 mg Tab) clopidogrel (clopidogrel 75 mg Tab) Contact prescribing physician if questions or concerns aspirin (aspirin 81 mg Oral EC Tab) lisinopril (lisinopril 40 mg Tab) Procedures Performed Bilateral tubal ligation, Carpal tunnel release, Hysterectomy, Tibia. Discharge Vitals Temperature (Temporal Artery) 36.7 ?C Heart Rate (Peripheral) 56 Respiratory Rate 18 Blood Pressure 124/82 Height 168 cm Height 66 in Weight 101.2 kg Weight 222.64 lb BMI 35.86 What to do next Scheduled Follow-Up Appointments Thursday 8:00 AM EDT With: Where: [facility] [address] [place] [address]- \.br\ Medications\.br\ What How Much When Instructions\.br\ Unchanged atorvastatin (atorvastatin 40 mg Tab) 1 Tablets By Mouth Every day Pickup at [facility]\.br\ Unchanged clopidogrel (clopidogrel 75 mg Tab) 1 Tablets By Mouth Every day Pickup at [facility]\.br\ Unchanged aspirin (aspirin 81 mg Oral EC Tab) 1 Tablets By Mouth Every day Contact prescribing physician if questions or concerns \.br\ Unchanged lisinopril (lisinopril 40 mg Tab) See instructions TAKE ONE TABLET BY MOUTH DAILY Contact prescribing physician if questions or concerns \.br\ Pharmacy Information\.br\ [facility]: [address], [place] [id number] [phone]\.br\ Allergies\.br\ No Known Medication Allergies\.br\ Problems\.br\ Ongoing - Any problem that you are currently receiving treatment for.\.br\ Colon cancer screening declined\.br\ Fall at home\.br\ Hx of stroke without residual deficits\.br\ Hypercholesterolemia\ .br\ Primary hypertension\.br\ Vitamin D deficiency\.br\ Patient Survey\.br\ You may receive a survey via text or e-mail asking about your office visit. Please share your experience with us by completing your survey. We appreciate your feedback and thank you for choosing us for your care.\.br\ Education Materials\.br\ BMI for Adults\.br\ What is BMI?\.br\ Body mass index (BMI) is a number that is calculated from a person's weight and height. BMI can help estimate how much of a person's weight is composed of fat. BMI does not measure body fat directly. Rather, it is an alternative to procedures that directly measure body fat, which can be difficult and expensive.\.br\ BMI can help identify people who may be at higher risk for certain medical problems.\.br\ What are BMI measurements used for?\.br\ BMI is used as a screening tool to identify possible weight problems. It helps determine whether a person is obese, overweight, a healthy weight, or underweight.\.br\ BMI is useful for:\.br\ ? \.br\ Identifying a weight problem that may be related to a medical condition or may increase the risk for medical problems.\.br\ ? \.br\ Promoting changes, such as changes in diet and exercise, to help reach a healthy weight. BMI screening can be repeated to see if these changes are working.\.br\ How is BMI calculated?\.br\ BMI involves measuring your weight in relation to your height. Both height and weight are measured, and the BMI is calculated from those numbers. This can be done either in [place] or metric measurements. Note that charts and online BMI calculators are available to help you find your BMI quickly and easily without having to do these calculations yourself.\.br\ To calculate your BMI in [place] measurements:\.br\ \.br\ 1. \.br\ Measure your weight in pounds (lb).\.br\ 2. \.br\ Multiply the number of pounds by 703.\.br\ ? \.br\ For example, for a person who weighs 180 lb, multiply that number by 703, which equals 126,540.\.br\ 3. \.br\ Measure your height in inches. Then multiply that number by itself to get a measurement called inches squared. \.br\ ? \.br\ For example, for a person who is 70 inches tall, the inches squared measurement is 70 inches x 70 inches, which equals 4,900 inches squared.\.br\ 4. \.br\ Divide the total from step 2 (number of lb x 703) by the total from step 3 (inches squared): 126,540 ? 4,900 = 25.8. This is your BMI.\.br\ To calculate your BMI in metric measurements:\.br\ 1. \.br\ Measure your weight in kilograms (kg).\.br\ 2. \.br\ Measure your height in meters (m). Then multiply that number by itself to get a measurement called meters squared. \.br\ ? \.br\ For example, for a person who is 1.75 m tall, the meters squared measurement is 1.75 m x 1.75 m, which is equal to 3.1 meters squared.\.br\ 3. \.br\ Divide the number of kilograms (your weight) by the meters squared number. In this example: 70 ? 3.1 = 22.6. This is your BMI.\.br\ What do the results mean?\.br\ BMI charts are used to identify whether you are underweight, normal weight, overweight, or obese. The following guidelines will be used:\.br\ ? \.br\ Underweight: BMI less than 18.5.\.br\ ? \.br\ Normal weight: BMI between 18.5 and 24.9.\.br\ ? \.br\ Overweight: BMI between 25 and 29.9.\.br\ ? \.br\ Obese: BMI of 30 or above.\.br\ Keep these notes in mind:\.br\ ? \.br\ Weight includes both fat and muscle, so someone with a muscular build, such as an athlete, may have a BMI that is higher than 24.9. In cases like these, BMI is not an accurate measure of body fat.\.br\ ? \.br\ To determine if excess body fat is the cause of a BMI of 25 or higher, further assessments may need to be done by a health care provider.\.br\ ? \.br\ BMI is usually interpreted in the same way for men and women.\.br\ Where to find more information\.br\ For more information about BMI, including tools to quickly calculate your BMI, go to these websites:\.br\ ? \.br\ Centers for Disease Control and Prevention: www.cdc.gov\.br\ ? \.br\ [place] [employer]: www.heart.org\.br\ ? \.br\ National Heart, Lung, and Blood [place]: www.nhlbi.nih.gov\.br \ Summary\.br\ ? \.br\ Body mass index (BMI) is a number that is calculated from a person's weight and height.\.br\ ? \.br\ BMI may help estimate how much of a person's weight is composed of fat. BMI can help identify those who may be at higher risk for certain medical problems.\.br\ ? \.br\ BMI can be measured using [place] measurements or metric measurements.\.br\ ? \.br\ BMI charts are used to identify whether you are underweight, normal weight, overweight, or obese.\.br\ This information is not intended to replace advice given to you by your health care provider. Make sure you discuss any questions you have with your health care provider.\.br\ Document Revised: 11/23/2019 Document Reviewed: 09/30/2019 Elsevier Patient Education ? 2022 [employer]vier Inc.\.br\ \.br\ [facility] Family Medicine Office/Can [facility] 04-27-2023 Family Medicine Office/Clinic Note HPI Staff Jean is a 68 year old female presenting for 6 month follow up htn Patient is here for follow up on hypertension. How often are you checking your blood pressure? Doesnt check BP at home What are your average readings? N/A, Not checking at home Yearly BMP: 09/23/22 flu: refused questions/concerns: needs her atorvastatin refilled History of Present Illness - Pt needs refills on meds. Review of Systems PHQ Score Initial Depression Screen Score: 0 SCORE Physical Exam Vitals & Measurements T: 36.7 ?C(Temporal Artery) HR: 56(Peripheral) RR: 18 BP: 124/82 SpO2: 95% HT: 66 in HT: 168 cm WT: 101.2 kg WT: 222.64 lb BMI: 35.86 General: alert, no acute distress ENMT: oral mucosa moist, Cardiovascular: regular rate and rhythm, normal peripheral perfusion Respiratory: Lungs CTA, respirations non labored Extremities: no deformity, no trauma Neurological: oriented x 4, LOC appropriate for age, CN II-XII intact, motor strength equal & normal bilaterally, speech normal Abdomen: Soft, Nontender, Non-distended, + BS Assessment/Plan 1. Primary hypertension (I10: Essential (primary) hypertension) - At goal. - Will refill meds Ordered: Body Mass Index (BMI) documented 3008F Current tobacco non-user 1036F Depression Screening Negative 3352F Fall Risk Screen 2 or more w/injury 1100F Influenza immunization status assessed 1030F Most recent diastolic blood pressure 80-89 mm Hg 3079F Systolic BP <130 mm Hg (Most Recent) 3074F 2. Adult BMI 35.0-35.9 kg/sq m (Z68.35: Body mass index [BMI] 35.0-35.9, adult) - BMI education given Ordered: Body Mass Index (BMI) documented 3008F Current tobacco non-user 1036F Depression Screening Negative 3352F Fall Risk Screen 2 or more w/injury 1100F Influenza immunization status assessed 1030F Most recent diastolic blood pressure 80-89 mm Hg 3079F Systolic BP <130 mm Hg (Most Recent) 3074F 3. Class 1 obesity due to excess calories in adult (E66.09: Other obesity due to excess calories) - Diet and exercise advised Ordered: Body Mass Index (BMI) documented 3008F Current tobacco non-user 1036F Depression Screening Negative 3352F Fall Risk Screen 2 or more w/injury 1100F Influenza immunization status assessed 1030F Most recent diastolic blood pressure 80-89 mm Hg 3079F Systolic BP <130 mm Hg (Most Recent) 3074F 4. Nonsmoker (Z78.9: Other specified health status) - Please continue to not smoke. Ordered: Body Mass Index (BMI) documented 3008F Current tobacco non-user 1036F Depression Screening Negative 3352F Fall Risk Screen 2 or more w/injury 1100F Influenza immunization status assessed 1030F Most recent diastolic blood pressure 80-89 mm Hg 3079F Systolic BP <130 mm Hg (Most Recent) 3074F 5. Hypercholesterolemia (E78.00: Pure hypercholesterolemia, unspecified) - Refill statins Orders: atorvastatin, 40 mg = 1 tab(s), Oral, Daily, # 90 tab(s), Refills(s) 1, Pharmacy: [facility], 168, cm, 04/27/23 12:58:00 EST, Height/Length Dosing, 101.2, kg, 04/27/23 12:58:00 EST, Weight Dosing clopidogrel, 75 mg = 1 tab(s), Oral, Daily, # 90 tab(s), Refills(s) 1, Pharmacy: [facility], 168, cm, 04/27/23 12:58:00 EST, Height/Length Dosing, 101.2, kg, 04/27/23 12:58:00 EST, Weight Dosing Follow-up No qualifying data available Patient Education BMI for Adults Problem List/Past Medical History Ongoing Colon cancer screening declined Fall at home Hx of stroke without residual deficits Hypercholesterolemia Primary hypertension Vitamin D deficiency Historical No qualifying data Procedure/Surgical History Bilateral tubal ligation, Carpal tunnel release, Hysterectomy, Tibia. Medications aspirin 81 mg Oral EC Tab, 81 mg= 1 tab(s), Oral, Daily atorvastatin 40 mg Tab, 40 mg= 1 tab(s), Oral, Daily, 1 refills clopidogrel 75 mg Tab, 75 mg= 1 tab(s), Oral, Daily, 1 refills lisinopril 40 mg Tab, See Instructions Allergies No Known Medication Allergies Social History Alcohol 1-2 times per year, 1 drinks/episode average. Household alcohol concerns: No., 09/23/2022 Substance Abuse Current, Marijuana, 09/02/2022 Tobacco Never (less than 100 in lifetime) Tobacco Use:. Never Smokeless Tobacco Use:. Cigarettes, 04/27/2023 Family History Acute myocardial infarction: Grandparent. Heart disease: Mother. Immunizations Vaccine Date Status Comments influenza virus vaccine, inactivated - Not Given Patient Refuses Normal [facility] Comment on above: Result Comment: Elec tronically Signed By: Ronak VALENTINE, Grover Starr\.br\Date and Time Signed: 04/27/23 13:12 EST Patient Educationon 04-27-19 24 Patient Education Nutrition BMI for Adults What is BMI? Body mass index (BMI) is a number that is calculated from a person's weight and height. BMI can help estimate how much of a person's weight is composed of fat. BMI does not measure body fat directly. Rather, it is an alternative to procedures that directly measure body fat, which can be difficult and expensive. BMI can help identify people who may be at higher risk for certain medical problems. What are BMI measurements used for? BMI is used as a screening tool to identify possible weight problems. It helps determine whether a person is obese, overweight, a healthy weight, or underweight. BMI is useful for: ? Identifying a weight problem that may be related to a medical condition or may increase the risk for medical problems. ? Promoting changes, such as changes in diet and exercise, to help reach a healthy weight. BMI screening can be repeated to see if these changes are working. How is BMI calculated? BMI involves measuring your weight in relation to your height. Both height and weight are measured, and the BMI is calculated from those numbers. This can be done either in [place] or metric measurements. Note that charts and online BMI calculators are available to help you find your BMI quickly and easily without having to do these calculations yourself. To calculate your BMI in [place] measurements: 1. Measure your weight in pounds (lb). 2. Multiply the number of pounds by 703. ? For example, for a person who weighs 180 lb, multiply that number by 703, which equals 126,540. 3. Measure your height in inches. Then multiply that number by itself to get a measurement called inches squared. ? For example, for a person who is 70 inches tall, the inches squared measurement is 70 inches x 70 inches, which equals 4,900 inches squared. 4. Divide the total from step 2 (number of lb x 703) by the total from step 3 (inches squared): 126,540 ? 4,900 = 25.8. This is your BMI. To calculate your BMI in metric measurements: 1. Measure your weight in kilograms (kg). 2. Measure your height in meters (m). Then multiply that number by itself to get a measurement called meters squared. ? For example, for a person who is 1.75 m tall, the meters squared measurement is 1.75 m x 1.75 m, which is equal to 3.1 meters squared. 3. Divide the number of kilograms (your weight) by the meters squared number. In this example: 70 ? 3.1 = 22.6. This is your BMI. What do the results mean? BMI charts are used to identify whether you are underweight, normal weight, overweight, or obese. The following guidelines will be used: ? Underweight: BMI less than 18.5. ? Normal weight: BMI between 18.5 and 24.9. ? Overweight: BMI between 25 and 29.9. ? Obese: BMI of 30 or above. Keep these notes in mind: ? Weight includes both fat and muscle, so someone with a muscular build, such as an athlete, may have a BMI that is higher than 24.9. In cases like these, BMI is not an accurate measure of body fat. ? To determine if excess body fat is the cause of a BMI of 25 or higher, further assessments may need to be done by a health care provider. ? BMI is usually interpreted in the same way for men and women. Where to find more information For more information about BMI, including tools to quickly calculate your BMI, go to these websites: ? Centers for Disease Control and Prevention: www.cdc.gov ? [place] [employer]: www.heart.org ? National Heart, Lung, and Blood [place]: www.nhlbi.nih.gov Summary ? Body mass index (BMI) is a number that is calculated from a person's weight and height. ? BMI may help estimate how much of a person's weight is composed of fat. BMI can help identify those who may be at higher risk for certain medical problems. ? BMI can be measured using [place] measurements or metric measurements. ? BMI charts are used to identify whether you are underweight, normal weight, overweight, or obese. This information is not intended to replace advice given to you by your health care provider. Make sure you discuss any questions you have with your health care provider. Document Revised: 11/23/2019 Document Reviewed: 09/30/2019 [employer] Patient Education ? 2022 [employer] Normal [facility] Ambulatory Visit Summaryon 0 03-23-2023 Ambulatory Visit Summary JEAN GASTON :1955 Visit Date:03/23/2023 Ambulatory Visit Instructions Your Diagnosis Fall at home Primary hypertension BMI 35.0-35.9,adult Class 1 obesity due to excess calories in adult Nonsmoker Unspecified place in unspecified non-institutional (private) residence as the place of occurrence of the external cause Your Care Team Attending Physician - Grover Simons MD Primary Care Physician - Grover Simons MD This Is Your Medications List Contact prescribing physician if questions or concerns aspirin (aspirin 81 mg Oral EC Tab) atorvastatin (atorvastatin 40 mg Tab) clopidogrel (clopidogrel 75 mg Tab) lisinopril (lisinopril 40 mg Tab) Procedures Performed Bilateral tubal ligation, Carpal tunnel release, Hysterectomy, Tibia. Discharge Vitals Temperature (Temporal Artery) 36.5 ?C Heart Rate (Peripheral) 64 Respiratory Rate 14 Blood Pressure 132/84 Height 168 cm Height 66 in Weight 98.9 kg Weight 217.58 lb BMI 35.04 What to do next Scheduled Follow-Up Appointments Thursday 1:00 PM EST With: Grover Simons MD Where: [facility] [address] [place] [address]- \.br\ Medications\.br\ What How Much When Instructions\.br\ Unchanged aspirin (aspirin 81 mg Oral EC Tab) 1 Tablets By Mouth Every day Contact prescribing physician if questions or concerns \.br\ Unchanged atorvastatin (atorvastatin 40 mg Tab) 1 Tablets By Mouth Every day Contact prescribing physician if questions or concerns \.br\ Unchanged clopidogrel (clopidogrel 75 mg Tab) 1 Tablets By Mouth Every day Contact prescribing physician if questions or concerns \.br\ Unchanged lisinopril (lisinopril 40 mg Tab) 1 Tablets By Mouth Every day Contact prescribing physician if questions or concerns \.br\ Allergies\.br\ No Known Medication Allergies\.br\ Problems\.br\ Ongoing - Any problem that you are currently receiving treatment for.\.br\ Colon cancer screening declined\.br\ Fall at home\.br\ Hx of stroke without residual deficits\.br\ Hypercholesterolemia\ .br\ Primary hypertension\.br\ Vitamin D deficiency\.br\ Patient Survey\.br\ You may receive a survey via text or e-mail asking about your office visit. Please share your experience with us by completing your survey. We appreciate your feedback and thank you for choosing us for your care.\.br\ Education Materials\.br\ BMI for Adults\.br\ What is BMI?\.br\ Body mass index (BMI) is a number that is calculated from a person's weight and height. BMI can help estimate how much of a person's weight is composed of fat. BMI does not measure body fat directly. Rather, it is an alternative to procedures that directly measure body fat, which can be difficult and expensive.\.br\ BMI can help identify people who may be at higher risk for certain medical problems.\.br\ What are BMI measurements used for?\.br\ BMI is used as a screening tool to identify possible weight problems. It helps determine whether a person is obese, overweight, a healthy weight, or underweight.\.br\ BMI is useful for:\.br\ ? \.br\ Identifying a weight problem that may be related to a medical condition or may increase the risk for medical problems.\.br\ ? \.br\ Promoting changes, such as changes in diet and exercise, to help reach a healthy weight. BMI screening can be repeated to see if these changes are working.\.br\ How is BMI calculated?\.br\ BMI involves measuring your weight in relation to your height. Both height and weight are measured, and the BMI is calculated from those numbers. This can be done either in [place] or metric measurements. Note that charts and online BMI calculators are available to help you find your BMI quickly and easily without having to do these calculations yourself.\.br\ To calculate your BMI in [place] measurements:\.br\ \.br\ 1. \.br\ Measure your weight in pounds (lb).\.br\ 2. \.br\ Multiply the number of pounds by 703.\.br\ ? \.br\ For example, for a person who weighs 180 lb, multiply that number by 703, which equals 126,540.\.br\ 3. \.br\ Measure your height in inches. Then multiply that number by itself to get a measurement called inches squared. \.br\ ? \.br\ For example, for a person who is 70 inches tall, the inches squared measurement is 70 inches x 70 inches, which equals 4,900 inches squared.\.br\ 4. \.br\ Divide the total from step 2 (number of lb x 703) by the total from step 3 (inches squared): 126,540 ? 4,900 = 25.8. This is your BMI.\.br\ To calculate your BMI in metric measurements:\.br\ 1. \.br\ Measure your weight in kilograms (kg).\.br\ 2. \.br\ Measure your height in meters (m). Then multiply that number by itself to get a measurement called meters squared. \.br\ ? \.br\ For example, for a person who is 1.75 m tall, the meters squared measurement is 1.75 m x 1.75 m, which is equal to 3.1 meters squared.\.br\ 3. \.br\ Divide the number of kilograms (your weight) by the meters squared number. In this example: 70 ? 3.1 = 22.6. This is your BMI.\.br\ What do the results mean?\.br\ BMI charts are used to identify whether you are underweight, normal weight, overweight, or obese. The following guidelines will be used:\.br\ ? \.br\ Underweight: BMI less than 18.5.\.br\ ? \.br\ Normal weight: BMI between 18.5 and 24.9.\.br\ ? \.br\ Overweight: BMI between 25 and 29.9.\.br\ ? \.br\ Obese: BMI of 30 or above.\.br\ Keep these notes in mind:\.br\ ? \.br\ Weight includes both fat and muscle, so someone with a muscular build, such as an athlete, may have a BMI that is higher than 24.9. In cases like these, BMI is not an accurate measure of body fat.\.br\ ? \.br\ To determine if excess body fat is the cause of a BMI of 25 or higher, further assessments may need to be done by a health care provider.\.br\ ? \.br\ BMI is usually interpreted in the same way for men and women.\.br\ Where to find more information\.br\ For more information about BMI, including tools to quickly calculate your BMI, go to these websites:\.br\ ? \.br\ Centers for Disease Control and Prevention: www.cdc.gov\.br\ ? \.br\ [place] [employer]: www.heart.org\.br\ ? \.br\ National Heart, Lung, and Blood [place]: www.nhlbi.nih.gov\.br \ Summary\.br\ ? \.br\ Body mass index (BMI) is a number that is calculated from a person's weight and height.\.br\ ? \.br\ BMI may help estimate how much of a person's weight is composed of fat. BMI can help identify those who may be at higher risk for certain medical problems.\.br\ ? \.br\ BMI can be measured using [place] measurements or metric measurements.\.br\ ? \.br\ BMI charts are used to identify whether you are underweight, normal weight, overweight, or obese.\.br\ This information is not intended to replace advice given to you by your health care provider. Make sure you discuss any questions you have with your health care provider.\.br\ Document Revised: 11/23/2019 Document Reviewed: 09/30/2019 [employer] Patient Education ? 2022 [employer].\.br\ \.br\ [facility] ED Note-Physicianon 03-23-19 ED Note-Physician [id number] .00TIFF Normal [facility] Family Medicine Office/Clini c Noteon 03-23-2023 Family Medicine Office/Clinic Note HPI Staff Jean is a 67 year old female presenting for ER follow up ER followup: Hospital: [facility] Visit date: 03/19/23 Symptoms the patient presented with: took a fall. Went out to get something to eat and as they left foot didn't lift enought to go over the rug and she went down. Head struck the door frame. Had a very large goose egg across the forehead. Didn't feel bad but decided to go to the ER and get it checked. Did Ct done facial and brain. no broken bones and no concussion Current concerns: none. she feels great flu: refused for season History of Present Illness The patient presents for evaluation of a fall. She was at a restaurant and her foot did not raise high enough to go over the edge of the rug and she took a hatter and landed on the door frame. She did not split her head open. She is feeling great. This is her first fall this year. Review of Systems PHQ Score Initial Depression Screen Score: 0 SCORE Physical Exam Vitals & Measurements T: 36.5 ?C(Temporal Artery) HR: 64(Peripheral) RR: 14 BP: 132/84 SpO2: 97% HT: 66 in HT: 168 cm WT: 98.9 kg WT: 217.58 lb BMI: 35.04 General: alert, no acute distress ENMT: oral mucosa moist, Bruising noted all over the face. Cardiovascular: regular rate and rhythm, normal peripheral perfusion Respiratory: Lungs CTA, respirations non labored Extremities: no deformity, no trauma Neurological: oriented x 4, LOC appropriate for age, CN II-XII intact, motor strength equal & normal bilaterally, speech normal Abdomen: Soft, Nontender, Non-distended, + BS Assessment/Plan 1. Fall at home (W19.XXXA: Unspecified fall, initial encounter) - Reviewed records from [facility] and the CT report. - Doing well. - Still with bruising. - No other concerns - Follow up PRN. - Precautions discussed in detail. When to return discussed along with when to go to the ER. Pt verbalized understanding. Ordered: Body Mass Index (BMI) documented 3008F Current tobacco non-user 1036F Depression Screening Negative 3352F Fall Risk Screen 2 or more w/injury 1100F Influenza immunization status assessed 1030F Most recent diastolic blood pressure 80-89 mm Hg 3079F Systolic BP 130-139 mm Hg (Most Recent) 3075F 2. Primary hypertension (I10: Essential (primary) hypertension) - At goal today. - No issues at this time. Ordered: Body Mass Index (BMI) documented 3008F Current tobacco non-user 1036F Depression Screening Negative 3352F Fall Risk Screen 2 or more w/injury 1100F Influenza immunization status assessed 1030F Most recent diastolic blood pressure 80-89 mm Hg 3079F Systolic BP 130-139 mm Hg (Most Recent) 3075F 3. BMI 35.0-35.9,adult (Z68.35: Body mass index [BMI] 35.0-35.9, adult) - BMI education education given Ordered: Body Mass Index (BMI) documented 3008F Current tobacco non-user 1036F Depression Screening Negative 3352F Fall Risk Screen 2 or more w/injury 1100F Influenza immunization status assessed 1030F Most recent diastolic blood pressure 80-89 mm Hg 3079F Systolic BP 130-139 mm Hg (Most Recent) 3075F 4. Class 1 obesity due to excess calories in adult (E66.09: Other obesity due to excess calories) - Diet and exercise advised Ordered: Body Mass Index (BMI) documented 3008F Current tobacco non-user 1036F Depression Screening Negative 3352F Fall Risk Screen 2 or more w/injury 1100F Influenza immunization status assessed 1030F Most recent diastolic blood pressure 80-89 mm Hg 3079F Systolic BP 130-139 mm Hg (Most Recent) 3075F 5. Nonsmoker (Z78.9: Other specified health status) - Please continue to not smoke. Ordered: Body Mass Index (BMI) documented 3008F Current tobacco non-user 1036F Depression Screening Negative 3352F Fall Risk Screen 2 or more w/injury 1100F Influenza immunization status assessed 1030F Most recent diastolic blood pressure 80-89 mm Hg 3079F Systolic BP 130-139 mm Hg (Most Recent) 3075F Unspecified place in unspecified non-institutional (private) residence as the place of occurrence of the external cause (Y92.009: Unspecified place in unspecified non-institutional (private) residence as the place of occurrence of the external cause) Follow-up No qualifying data available Patient Education BMI for Adults Problem List/Past Medical History Ongoing Colon cancer screening declined Fall at home Hx of stroke without residual deficits Hypercholesterolemia Primary hypertension Vitamin D deficiency Historical No qualifying data Procedure/Surgical History Bilateral tubal ligation, Carpal tunnel release, Hysterectomy, Tibia. Medications aspirin 81 mg Oral EC Tab, 81 mg= 1 tab(s), Oral, Daily atorvastatin 40 mg Tab, 40 mg= 1 tab(s), Oral, Daily clopidogrel 75 mg Tab, 75 mg= 1 tab(s), Oral, Daily, 1 refills lisinopril 40 mg Tab, 40 mg= 1 tab(s), Oral, Daily Allergies No Known Medication Allergies Social History Alcohol 1-2 times per year, 1 drinks/episode average. Househol (more content not included)... Normal [facility] Comment on above: Result Comment: Elec tronically Signed By: Ronak VALENTINE, Grover Starr\.br\Date and Time Signed: 03/23/23 08:05 EST Patient Educationon 03-23-19 Patient Education Nutrition BMI for Adults What is BMI? Body mass index (BMI) is a number that is calculated from a person's weight and height. BMI can help estimate how much of a person's weight is composed of fat. BMI does not measure body fat directly. Rather, it is an alternative to procedures that directly measure body fat, which can be difficult and expensive. BMI can help identify people who may be at higher risk for certain medical problems. What are BMI measurements used for? BMI is used as a screening tool to identify possible weight problems. It helps determine whether a person is obese, overweight, a healthy weight, or underweight. BMI is useful for: ? Identifying a weight problem that may be related to a medical condition or may increase the risk for medical problems. ? Promoting changes, such as changes in diet and exercise, to help reach a healthy weight. BMI screening can be repeated to see if these changes are working. How is BMI calculated? BMI involves measuring your weight in relation to your height. Both height and weight are measured, and the BMI is calculated from those numbers. This can be done either in [place] or metric measurements. Note that charts and online BMI calculators are available to help you find your BMI quickly and easily without having to do these calculations yourself. To calculate your BMI in [place] ([place] measurements: 1. Measure your weight in pounds (lb). 2. Multiply the number of pounds by 703. ? For example, for a person who weighs 180 lb, multiply that number by 703, which equals 126,540. 3. Measure your height in inches. Then multiply that number by itself to get a measurement called inches squared. ? For example, for a person who is 70 inches tall, the inches squared measurement is 70 inches x 70 inches, which equals 4,900 inches squared. 4. Divide the total from step 2 (number of lb x 703) by the total from step 3 (inches squared): 126,540 ? 4,900 = 25.8. This is your BMI. To calculate your BMI in metric measurements: 1. Measure your weight in kilograms (kg). 2. Measure your height in meters (m). Then multiply that number by itself to get a measurement called meters squared. ? For example, for a person who is 1.75 m tall, the meters squared measurement is 1.75 m x 1.75 m, which is equal to 3.1 meters squared. 3. Divide the number of kilograms (your weight) by the meters squared number. In this example: 70 ? 3.1 = 22.6. This is your BMI. What do the results mean? BMI charts are used to identify whether you are underweight, normal weight, overweight, or obese. The following guidelines will be used: ? Underweight: BMI less than 18.5. ? Normal weight: BMI between 18.5 and 24.9. ? Overweight: BMI between 25 and 29.9. ? Obese: BMI of 30 or above. Keep these notes in mind: ? Weight includes both fat and muscle, so someone with a muscular build, such as an athlete, may have a BMI that is higher than 24.9. In cases like these, BMI is not an accurate measure of body fat. ? To determine if excess body fat is the cause of a BMI of 25 or higher, further assessments may need to be done by a health care provider. ? BMI is usually interpreted in the same way for men and women. Where to find more information For more information about BMI, including tools to quickly calculate your BMI, go to these websites: ? Centers for Disease Control and Prevention: www.cdc.gov ? [place] [employer]: www.heart.org ? National Heart, Lung, and Blood [place]: www.nhlbi.nih.gov Summary ? Body mass index (BMI) is a number that is calculated from a person's weight and height. ? BMI may help estimate how much of a person's weight is composed of fat. BMI can help identify those who may be at higher risk for certain medical problems. ? BMI can be measured using [place] measurements or metric measurements. ? BMI charts are used to identify whether you are underweight, normal weight, overweight, or obese. This information is not intended to replace advice given to you by your health care provider. Make sure you discuss any questions you have with your health care provider. Document Revised: 11/23/2019 Document Reviewed: 09/30/2019 [employer] Patient Education ? 2022 [employer]. [facility] RAD - CT Reporton 03-23-2023 RAD - [address] Report [id number] .00TIFF [facility] RAD - CT Report [id number] .00TIFF [facility] Family Medicine Office/Clini c Noteon 12-31-2022 Family Medicine Office/Clinic Note HPI Staff Jean is a 67 year old female presenting for medication refills Patient is here for follow up on hypertension. How often are you checking your blood pressure? Doesnt check BP at home What are your average readings? N/A, Not checking at home Yearly BMP: 09/23/22 flu: refused for the season questions/concerns: When here in october didn't realize her rxs were running out in December and was told needed to be seen first Needs everything refilled ( except asa) History of Present Illness Jean Gaston is a 67-year-old female who presents today for a follow-up evaluation of hypertension. The patient's blood pressure is currently within the normal range, and she is on Lisinopril for blood pressure management. She reports her anxiety levels as being fantastic and is not on any specific medication for anxiety management at this time. Her cholesterol levels are within the normal range, and she is on a statin medication for cholesterol management. She has a medical history of stroke but reports no residual deficits. The patient reports that she does not experience a persistent tingling sensation, often described as the feeling of being submerged in water, on one side of her body. While she denies smoking cigarettes, she does admit to marijuana consumption. Review of Systems PHQ Score Initial Depression Screen Score: 0 Physical Exam Vitals & Measurements T: 36.4 ?C(Temporal Artery) HR: 62(Peripheral) RR: 16 BP: 132/84 SpO2: 96% HT: 66 in HT: 168 cm WT: 97.4 kg WT: 214.28 lb BMI: 34.51 General: alert, no acute distress ENMT: oral mucosa moist, no pharyngeal erythema or exudate Cardiovascular: regular rate and rhythm, normal peripheral perfusion Respiratory: Lungs CTA, respirations non labored Extremities: no deformity, no trauma Neurological: oriented x 4, LOC appropriate for age, CN II-XII intact, motor strength equal & normal bilaterally, speech normal Assessment/Plan 1. Primary hypertension (I10: Essential (primary) hypertension) Patient is at goal today. We will continue patient on her blood pressure medication, lisinopril. We will refill today. 2. Anxiety (F41.9: Anxiety disorder, unspecified) Patient has no concerns at all. Patient is not on any medication for this. We will resolve this issue on the chart. 3. Hypercholesterolemia (E78.00: Pure hypercholesterolemia, unspecified) Reviewed labs with the patient. They look normal. We will continue patient on a statin. 4. Hx of stroke without residual deficits (Z86.73: Personal history of transient ischemic attack (TIA), and cerebral infarction without residual deficits) Unsure if this tingling sensation is from residual. We will continue to monitor. Continue aspirin, statin, and clopidogrel. 5. Vitamin D deficiency (E55.9: Vitamin D deficiency, unspecified) Patient should continue taking OTC vitamin D. 6. BMI 34.0-34.9,adult (Z68.34: Body mass index [BMI] 34.0-34.9, adult) BMI education given. 7. Class 1 obesity due to excess calories in adult (E66.09: Other obesity due to excess calories) Diet and exercise advised. Portions of this record may have been created with voice recognition artificial intelligence software, specifically [employer], [employer] and or [employer]. Substitutions may have occurred due to the inherent limitations of voice recognition and artificial intelligence software. Documentation services were performed after patient or guardian consented to allow [employer] to record this visit. GORDON liquified natural gas specialist and provider reviewed before signing. GORDON: Dhevie Rigor Follow-up No qualifying data available We will see the patient back in 6 months. We will refill medications today. Problem List/Past Medical History Ongoing Colon cancer screening declined Hx of stroke without residual deficits Hypercholesterolemia Primary hypertension Vitamin D deficiency Historical No qualifying data Procedure/Surgical History Bilateral tubal ligation, Carpal tunnel release, Hysterectomy, Tibia. Medications aspirin 81 mg Oral EC Tab, 81 mg= 1 tab(s), Oral, Daily atorvastatin 40 mg Tab, 40 mg= 1 tab(s), Oral, Daily clopidogrel 75 mg Tab, 75 mg= 1 tab(s), Oral, Daily, 1 refills lisinopril 40 mg Tab, 40 mg= 1 tab(s), Oral, Daily Allergies No Known Medication Allergies Social History Alcohol 1-2 times per year, 1 drinks/episode average. Household alcohol concerns: No., 09/23/2022 Substance Abuse Current, Marijuana, 09/02/2022 Tobacco Never (less than 100 in lifetime) Tobacco Use:. Never Smokeless Tobacco Use:. Cigarettes, 12/29/2022 Family History Acute myocardial infarction: Grandparent. Heart disease: Mother. Immunizations Vaccine Date Status Comments influenza virus vaccine, inactivated - Not Given Patient Refuses Normal [facility] Comment on above: Result Comment: Elec tronically Signed By: Grover Simons MD\.br\Date and Time Signed: 12/31/22 12:31 EDT\.br\Electronically Co-Signed By: Renzo Echeverria\.br\Date and Time Co-Signed: 12/29/22 12:03 EDT Retail - Clinical Noteon Retail - Clinical Note [id number] .00CD:127 Normal [facility] Ambulatory Visit Summaryon 0 10-28-2022 Ambulatory Visit Summary JEAN GASTON :1955 Visit Date:10/28/2022 Ambulatory Visit Instructions Your Diagnosis Cerebrovascular accident (CVA) due to thrombosis of cerebral artery Primary hypertension Hypercholesterolemia BMI 34.0-34.9,adult Class 1 obesity due to excess calories in adult Vitamin D deficiency Anxiety Your Care Team Attending Physician - Grover Simons MD Primary Care Physician - Ross MD, Grover E. This Is Your Medications List aspirin (aspirin 81 mg Oral EC Tab) atorvastatin (atorvastatin 40 mg Tab) clopidogrel (clopidogrel 75 mg Tab) lisinopril (lisinopril 40 mg Tab) Procedures Performed Bilateral tubal ligation, Carpal tunnel release, Hysterectomy, Tibia. Discharge Vitals Temperature (Oral) 36.2 ?C Heart Rate (Peripheral) 76 Respiratory Rate 16 Blood Pressure 124/80 Height 168 cm Height 66 in Weight 97.7 kg Weight 214.94 lb BMI 34.62 What to do next Scheduled Follow-Up Appointments Thursday 1:00 PM EST With: Ronak VALENTINE, Grover Starr Where: [facility] Normal [address] \.br\ Medications\.br\ What How Much When Instructions\.br\ Unchanged aspirin (aspirin 81 mg Oral EC Tab) 1 Tablets By Mouth Every day\.br\ Unchanged atorvastatin (atorvastatin 40 mg Tab) 1 Tablets By Mouth Every day\.br\ Unchanged clopidogrel (clopidogrel 75 mg Tab) 1 Tablets By Mouth Every day\.br\ Unchanged lisinopril (lisinopril 40 mg Tab) 1 Tablets By Mouth Every day\.br\ Allergies\.br\ No Known Medication Allergies\.br\ Problems\.br\ Ongoing - Any problem that you are currently receiving treatment for.\.br\ Anxiety\.br\ Cerebrovascular accident (CVA) due to thrombosis of cerebral artery\.br\ Hypercholesterolemia\ .br\ Primary hypertension\.br\ Vitamin D deficiency\.br\ \.br\ [facility] Family Medicine Office/Clini c Noteon 10-28-2022 Family Medicine Office/Clinic Note Chief Complaint 2 month follow up htn HPI Staff Patient presents for 2 month follow up medications bp and cholesterol Got dizzy when had labs drawn for medicare wellness but she's fine Patient is here for follow up on hypertension. How often are you checking your blood pressure?doesn't check it _ What are your average readings? n/a Yearly BMP: 09/23/22_ Patient is here for follow up on hyperlipidemia: Do you have side effects from the medication? no Refill needed?: no Yearly Lipid labs: 09/23/22 questions/concerns: none History of Present Illness The patient is a 67-year-old female who is coming in for a followup on chronic issues. She became dizzy the other day after getting a blood draw for her Medicare wellness visit. She was not dizzy all day. She was dehydrated. Her last stroke was in 2014. She feels like she is under water all the time. She has a mild headache constantly. She takes aspirin. Her anxiety is doing great. Review of Systems PHQ Score Initial Depression Screen Score: 0 Physical Exam Vitals & Measurements T: 36.2 ?C(Oral) HR: 76(Peripheral) RR: 16 BP: 124/80 SpO2: 97% HT: 66 in HT: 168 cm WT: 97.7 kg WT: 214.94 lb BMI: 34.62 General: alert, no acute distress ENMT: oral mucosa moist, Cardiovascular: regular rate and rhythm, normal peripheral perfusion Respiratory: Lungs CTA, respirations non labored Extremities: no deformity, no trauma Neurological: oriented x 4, LOC appropriate for age, CN II-XII intact, motor strength equal & normal bilaterally, speech normal Abdomen: Soft, Nontender, Non-distended, + BS Assessment/Plan 1. Cerebrovascular accident (CVA) due to thrombosis of cerebral artery (I63.30: Cerebral infarction due to thrombosis of unspecified cerebral artery) This is hx of. Will change. No new issues. Ordered: Body Mass Index (BMI) documented 3008F Current tobacco non-user 1036F Depression Screening Negative 3352F Most recent diastolic blood pressure 80-89 mm Hg 3079F Patient screen for fall risk: no falls in last year or 1 fall with no injury in last year 1101F Systolic BP <130 mm Hg (Most Recent) 3074F 2. Primary hypertension (I10: Essential (primary) hypertension) Controlled Ordered: Body Mass Index (BMI) documented 3008F Current tobacco non-user 1036F Depression Screening Negative 3352F Most recent diastolic blood pressure 80-89 mm Hg 3079F Patient screen for fall risk: no falls in last year or 1 fall with no injury in last year 1101F Systolic BP <130 mm Hg (Most Recent) 3074F 3. Hypercholesterolemia (E78.00: Pure hypercholesterolemia, unspecified) At goal Ordered: Body Mass Index (BMI) documented 3008F Current tobacco non-user 1036F Depression Screening Negative 3352F Most recent diastolic blood pressure 80-89 mm Hg 3079F Patient screen for fall risk: no falls in last year or 1 fall with no injury in last year 1101F Systolic BP <130 mm Hg (Most Recent) 3074F 4. BMI 34.0-34.9,adult (Z68.34: Body mass index [BMI] 34.0-34.9, adult) BMI education given. Ordered: Body Mass Index (BMI) documented 3008F Current tobacco non-user 1036F Depression Screening Negative 3352F Most recent diastolic blood pressure 80-89 mm Hg 3079F Patient screen for fall risk: no falls in last year or 1 fall with no injury in last year 1101F Systolic BP <130 mm Hg (Most Recent) 3074F 5. Class 1 obesity due to excess calories in adult (E66.09: Other obesity due to excess calories) Ordered: Body Mass Index (BMI) documented 3008F Current tobacco non-user 1036F Depression Screening Negative 3352F Most recent diastolic blood pressure 80-89 mm Hg 3079F Patient screen for fall risk: no falls in last year or 1 fall with no injury in last year 1101F Systolic BP <130 mm Hg (Most Recent) 3074F 6. Hx of stroke without residual deficits (Z86.73: Personal history of transient ischemic attack (TIA), and cerebral infarction without residual deficits) 7. Vitamin D deficiency (E55.9: Vitamin D deficiency, unspecified) No issues. 8. 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 Medications aspirin 81 mg Oral EC Tab, 81 mg= 1 tab(s), Oral, Daily atorvastatin 40 mg Tab, 40 mg= 1 tab(s), Oral, Daily clopidogrel 75 mg Tab, 75 mg= 1 tab(s), Oral, Daily, 1 refills lisinopril 40 mg Tab, 40 mg= 1 tab(s), Oral, Daily Allergies No Known Medication Allergies Social History Alcohol 1-2 times per year, 1 drinks/episode average. Household alcohol concerns: No., 09/23/2022 Substance Abuse Current, Marijuana, 09/02/2022 Tobacco (more content not included)... Normal [facility] Comment on above: Result Comment: Elec tronically Signed By: Ronak VALENTINE, Grover Guzman\Date and Time Signed: 10/28/22 14:03 EDT Patient Correspondenceon Patient Correspondence [id number]:127 Normal [facility] CHEMISTRYOrdered By: SYSTEM SYSTEM on 09-23-2022 Albumin [Mass/Vol] 3.8 g/dL Normal 3.3 - 5.0 gm/dL [facility] Remisol Albumin/Globulin [Mass ratio] 1.3 {ratio} Normal 1.1 - 2.2 [facility] Remisol ALP [Catalytic activity/Vol] 63 [iU]/d Normal 21 - 98 Int._Unit/L [facility] ALT No additional P-5'-P [Catalytic activity/Vol] 18 [iU]/d Normal 6 - 46 Int._Unit/L [facility] Anion gap [Moles/Vol] 12 mmol/L Normal 6 - 16 mEq/L [facility] AST [Catalytic activity/Vol] 19 [iU]/d Normal 5 - 43 Int._Unit/L [facility] Bilirubin [Mass/Vol] 0.7 mg/dL Normal 0.0 - 1.1 mg/dL [facility] Calcium [Mass/Vol] 9.3 mg/dL Normal 8.9 - 11.1 mg/dL [facility] Chloride [Moles/Vol] 104 mmol/L Normal 101 - 111 mmol/L [facility] Cholesterol [Mass/Vol] 143 mg/dL Normal 120 - 200 mg/dL [facility] Cholesterol in HDL [Mass/Vol] 36 mg/dL Invalid Interpretation Code [facility] Cholesterol in LDL [Mass/Vol] 84 mg/dL Normal <=129mg/dL [facility] Cholesterol in VLDL [Mass/Vol] 26 mg/dL Normal 7 - 40 mg/dL [facility] CO2 [Moles/Vol] 27 mmol/L Normal 21 - 31 mmol/L [facility] Creatinine [Mass/Vol] 0.5 mg/dL Normal 0.5 - 1.3 mg/dL [facility] GFR/1.73 sq M.predicted among non-blacks MDRD (S/P/Bld) [Vol rate/Area] 101 mL/min/1.73 m2 Normal >=59mL/min/1.73 m2 [facility] Chem S Globulin (S) [Mass/Vol] 3.0 g/dL Normal 1.4 - 4.0 gm/dL [facility] Remisol Glucose [Mass/Vol] 100 mg/dL Normal 55 - 199 mg/dL [facility] Remisol Potassium [Moles/Vol] 3.6 mmol/L Normal 3.5 - 5.3 mmol/L [facility] Remisol Protein [Mass/Vol] 6.8 g/dL Normal 6.0 - 7.8 gm/dL [facility] Remisol Sodium [Moles/Vol] 139 mmol/L Normal 135 - 145 mmol/L [facility] Remisol Triglyceride [Mass/Vol] 129 mg/dL Normal <=149mg/dL [facility] Remisol Urea nitrogen [Mass/Vol] 15 mg/dL Normal 5 - 21 mg/dL [facility] Remisol Urea nitrogen/Creatinine [Mass ratio] 30 mg/mg High 10 - 20 [facility] Remisol BNPon 08-27-2021 Natriuretic peptide B (Bld) [Mass/Vol] 72.0 pg/mL Normal <=900.0 [facility] Comment on above: Performed By: #### C MP, CMADM, BNP #### [facility] [address] [place] [address] Dr. Jeff Carranza CARDIAC MARCELA ADMITon 022 CK [Catalytic activity/Vol] 99 U/L Normal 26-192 [facility] Comment on above: Performed By: #### C MP, CMADM, BNP #### [facility] [address] [address] [address] Jeff Carranza CK.MB [Mass/Vol] 1.56 ng/mL Normal <=3.60 [facility] Comment on above: Performed By: #### C MP, CMADM, BNP #### [facility] [address] [address] [address] Jeff Carranza HSTROP 6.4 pg/mL Normal 4.0-51.3 [facility] Comment on above: Result Comment: CUT- OFF POINTS HAVE BEEN ESTABLISHED BASED ON THE FOURTH UNIVERSAL DEFINITIONS OF MYOCARDIAL INFARCTION. THE UPPER REFERENCE LIMIT (URL) OF TROPONIN, DEFINED THE 99TH PERCENTILE OF cTnI DISTRIBUTION IN A REFERENCE POPULATION, HAS BEEN CONFIRMED THE DECISION THRESHOLD FOR [place] DIAGNOSIS. Performed By: #### C MP, CMADM, BNP #### [facility] [address] [place] [address] Dr. Jeff Carranza COOPER 47 ng/mL Normal 9-82 [facility] Comment on above: Performed By: #### C MP, CMADM, BNP #### [facility] [address] [place] [address] Dr. Jeff Carranza CBC AUTO DIFFon 08-27-2021 BASO # 0.0 103/ul Normal 0.0-0.1 [facility] Comment on above: Performed By: #### C BC #### [facility] [address] [place] [address] Dr. Jeff Carranza Basophils/100 WBC (Bld) 0.2 % Normal 0.2-2.0 [facility] Comment on above: Performed By: #### C BC #### [facility] [address] [place] [address] Dr. Jeff Carranza EO # 0.1 103/ul Normal 0.0-0.7 [facility] Comment on above: Performed By: #### C BC #### [facility] [address] [place] [address] Dr. Jeff Carranza Eosinophils/100 WBC (Bld) 2.0 % Normal 0.9-7.0 [facility] Comment on above: Performed By: #### C BC #### [facility] [address] [place] [address] Dr. Jeff Carranza Erythrocyte distribution width (RBC) [Ratio] 12.7 % Normal 11.0-15.0 [facility] Comment on above: Performed By: #### C BC #### [facility] [address] [place] [address] Dr. Jeff Carranza Hematocrit (Bld) [Volume fraction] 40.4 % Normal 36.0-48.0 [facility] Comment on above: Performed By: #### C BC #### [facility] [address] [place] [address] Dr. Jeff Carranza Hemoglobin (Bld) [Mass/Vol] 13.3 g/dL Normal 12.0-16.0 [facility] Comment on above: Performed By: #### C BC #### [facility] [address] [place] [address] Dr. Jeff Carranza IG # 0.01 10e3/ul Normal 0.00-0.03 [facility] Comment on above: Performed By: #### C BC #### [facility] [address] [place] [address] Dr. Jeff Carranza IG % 0.2 % Normal 0.0-0.5 [facility] Comment on above: Performed By: #### C BC #### [facility] [address] [place] [address] Dr. Jeff Carranza LYMPH # 2.3 103/ul Normal 1.2-3.8 [facility] Comment on above: Performed By: #### C BC #### [facility] [address] [place] [address] Dr. Jeff Carranza Lymphocytes/100 WBC (Bld) 35.9 % Normal 20.5-60.0 [facility] Comment on above: Performed By: #### C BC #### [facility] [address] [place] [address] Dr. Jeff Carranza MANUAL DIFF REQ NO Normal [facility] Comment on above: Performed By: #### C BC #### [facility] [address] [place] [address] Dr. Jeff Carranza MCH (RBC) [Entitic mass] 30.3 pg Normal 26.7-34.0 [facility] Comment on above: Performed By: #### C BC #### [facility] [address] [place] [address] Dr. Jeff Carranza MCHC (RBC) [Mass/Vol] 32.9 g/dL Normal 29.9-35.2 [facility] Comment on above: Performed By: #### C BC #### [facility] [address] [address] [address] Jeff Carranza MCV (RBC) [Entitic vol] 92.0 fL Normal 81.0-99.0 [facility] Comment on above: Performed By: #### C BC #### [facility] [address] [address] [address] Jeff Carranza MONO # 0.4 103/ul Normal 0.3-0.8 [facility] Comment on above: Performed By: #### C BC #### [facility] [address] [place] [address] Dr. Jeff Carranza Monocytes/100 WBC (Bld) 6.5 % Normal 1.7-12.0 [facility] Comment on above: Performed By: #### C BC #### [facility] [address] [place] [address] Dr. Jeff Carranza NEUT # 3.6 103/ul Normal 1.4-6.5 [facility] Comment on above: Performed By: #### C BC #### [facility] [address] [place] [address] Dr. Jeff Carranza Neutrophils/100 WBC (Bld) 55.2 % Normal 43.0-75.0 [facility] Comment on above: Performed By: #### C BC #### [facility] [address] [place] [address] Dr. Jeff Carranza Platelet mean volume (Bld) [Entitic vol] 9.7 fL Normal 9.5-13.5 [facility] Comment on above: Performed By: #### C BC #### [facility] [address] [place] [address] Dr. Jeff Carranza PLT 222 103/ul Normal 150-450 [facility] Comment on above: Performed By: #### C BC #### [facility] [address] [place] [address] Dr. Jeff Carranza RBC 4.39 106/ul Normal 4.20-5.40 [facility] Comment on above: Performed By: #### C BC #### [facility] [address] [place] [address] Dr. Jeff Carranza WBC 6.4 103/ul Normal 4.0-11.0 [facility] Comment on above: Performed By: #### C BC #### [facility] [address] [place] [address] STROKE HEAD WOon 08-28-[address] STROKE HEAD WO HEAD CT WITHOUT CONTRAST: 08/27/2021 12:44 PM EDT Clinical Data: Asthenia Comparison: 04/18/2019 Unenhanced axial data from base to vertex. INTRA-AXIAL: No acute hemorrhage. No acute infarction is evident. EXTRA-AXIAL: No acute hemorrhage. No focal fluid collection. BRAIN VOLUME: Unremarkable for age. VENTRICLES: No hydrocephalus PARANASAL SINUSES: No air-fluid levels in the included aspects. MASTOIDS: Clear. CALVARIUM: No acute finding. EXTRACALVARIAL: No acute findings IMPRESSION: 1. No evidence of acute intracranial process on this unenhanced study as described. All CT scans at this facility use dose modulation, iterative reconstruction, and/or weight based dosing when appropriate to reduce radiation dose to as low as reasonably achievable. Electronically authenticated by: SAIDA VILLARREAL Date: 2021-08-27 13:10 Normal [facility] LACTATE/LACTIC ACIDon 2021 Lactate [Moles/Vol] 0.4 mmol/L Normal 0.4-1.9 [facility] Comment on above: Performed By: #### L ACT #### [facility] [address] [place] [address] Dr. Jeff Carranza PROF 14(COMP METB)on 022 Albumin [Mass/Vol] 3.6 g/dL Normal 3.4-5.0 [facility] Comment on above: Performed By: #### C MP, CMADM, BNP #### [facility] [address] [place] [address] Dr. Jeff Carranza Albumin/Globulin [Mass ratio] 1.0 {ratio} Normal [facility] Comment on above: Performed By: #### C MP, CMADM, BNP #### [facility] [address] [place] [address] Dr. Jeff Carranza ALP [Catalytic activity/Vol] 70 U/L Normal 46-116 [facility] Comment on above: Performed By: #### C MP, CMADM, BNP #### [facility] [address] [place] [address] Dr. Jeff Carranza ALT [Catalytic activity/Vol] 22 U/L Normal 14-59 [facility] Comment on above: Performed By: #### C MP, CMADM, BNP #### [facility] [address] [place] [address] Dr. Jeff Carranza Anion gap [Moles/Vol] 11.3 mmol/L Normal [facility] Comment on above: Performed By: #### C MP, CMADM, BNP #### [facility] [address] [place] [address] Dr. Jeff Carranza AST [Catalytic activity/Vol] 17 U/L Normal 15-37 [facility] Comment on above: Performed By: #### C MP, CMADM, BNP #### [facility] [address] [place] [address] Dr. Jeff Carranza Bilirubin [Mass/Vol] 0.3 mg/dL Normal 0.2-1.0 [facility] Comment on above: Performed By: #### C MP, CMADM, BNP #### [facility] [address] [place] [address] Dr. Jeff Carranza Calcium [Mass/Vol] 8.8 mg/dL Normal 8.5-10.1 [facility] Comment on above: Performed By: #### C MP, CMADM, BNP #### [facility] [address] [place] [address] Dr. Jeff Carranza Chloride [Moles/Vol] 105 mmol/L Normal 98-107 [facility] Comment on above: Performed By: #### C MP, CMADM, BNP #### [facility] [address] [place] [address] Dr. Jeff Carranza CO2 [Moles/Vol] 29.2 mmol/L Normal 21.0-32.0 [facility] Comment on above: Performed By: #### C MP, CMADM, BNP #### [facility] [address] [address] [address] Jeff Carranza Creatinine [Mass/Vol] 0.59 mg/dL Normal 0.55-1.02 [facility] Comment on above: Performed By: #### C MP, CMADM, BNP #### [facility] [address] [address] [address] Jeff Carranza EGFR-AF [facility]CI[facility] >60 Normal >=60 [facility] Comment on above: Performed By: #### C MP, CMADM, BNP #### [facility] [address] [place] [address] Dr. Jeff Carranza EGFR-NON AF [facility] >60 Normal >=60 [facility] Comment on above: Performed By: #### C MP, CMADM, BNP #### [facility] [address] [place] [address] Dr. Jeff Carranza Globulin (S) [Mass/Vol] 3.7 g/dL Normal [facility] Comment on above: Performed By: #### C MP, CMADM, BNP #### [facility] [address] [place] [address] Dr. Jeff Carranza Glucose [Mass/Vol] 104 mg/dL Normal 74-106 [facility] Comment on above: Performed By: #### C MP, CMADM, BNP #### [facility] [address] [place] [address] Dr. Jeff Carranza Potassium [Moles/Vol] 3.5 mmol/L Normal 3.5-5.1 [facility] Comment on above: Performed By: #### C MP, CMADM, BNP #### [facility] [address] [place] [address] Dr. Jeff Carranza Protein [Mass/Vol] 7.3 g/dL Normal 6.4-8.2 [facility] Comment on above: Performed By: #### C MP, CMADM, BNP #### [facility] [address] [place] [address] Dr. Jeff Carranza Sodium [Moles/Vol] 142 mmol/L Normal 136-145 [facility] Comment on above: Performed By: #### C MP, CMADM, BNP #### [facility] [address] [place] [address] Dr. Jeff Carranza Urea nitrogen [Mass/Vol] 11.0 mg/dL Normal 7.0-18.0 [facility] Comment on above: Performed By: #### C MP, CMADM, BNP #### [facility] [address] [place] [address] Dr. Jeff Carranza Urea nitrogen/Creatinine [Mass ratio] 18.6 mg/mg Normal [facility] Comment on above: Performed By: #### C MP, CMADM, BNP #### [facility] [address] [place] [address] Dr. Jeff Carranza PROTIMEon 08-27-2021 INR Coag (PPP) [Relative time] 1.00 {INR} Normal [facility] Comment on above: Performed By: #### P TT, PT #### [facility] [address] [place] [address] Dr. Jeff Carranza INR GUIDELINES SEE BELOW Normal [facility] Comment on above: Result Comment: ROD RED INR: 2.0 - 3.0 CONDITIONS NOT LISTED BELOW 2.5 - 3.5 FOR PROSTHETIC HEART VALVE REPLACEMENT 2.5 - 3.5 RECURRENT THROMBOSIS Performed By: #### P TT, PT #### [facility] [address] [place] [address] Dr. Jeff Carranza PT Coag (PPP) [Time] 10.8 s Normal 9.0-11.6 [facility] Comment on above: Performed By: #### P TT, PT #### [facility] [address] [place] [address] Dr. Jeff Carranza PTTon 08-27-2021 aPTT Coag (Bld) [Time] 29.3 s Normal 22.3-36.2 [facility] Comment on above: Performed By: #### P TT, PT #### [facility] [address] [place] [address] Dr. Jeff Carranza Encounters Encounter Date Encounter Type Care Provider Facility Start: 09-29-2024 ambulatory Grover Simons Facility :[facility] Start: 11-23-2023 ambulatory Grover Simons Facility :[facility] Start: 09-28-2023 End: 10-03-2023 Pre-admission assessment Grover Simons [facility] Start: 09-28-2023 End: 09-28-2023 ambulatory Elisabet L Gurpreet Facility:[facility] Start: 04-27-2023 End: 04-27-2023 ambulatory Grover Simons Facility:[facility] Start: 03-23-2023 End: 03-23-2023 ambulatory Grover Simons Facility:[facility] Start: 12-29-2022 End: 12-29-2022 ambulatory Grover Simons Facility:[facility] Start: 10-28-2022 End: 10-28-2022 ambulatory Grover Simons Facility:[facility] Start: 09-23-2022 End: 09-23-2022 Lab Drop off Elisabet L Gurpreet [facility] Start: 08-27-2021 End: 08-27-[address] ELEUTERIO GAFFNEY Facility:[facility] Procedures Date Procedure Procedure Detail Performing Clinician Bilateral tubal ligation Jod i Gurpreet Bone structure of ti noel (body structure) Elisabet Gurpreet Comment on above: pinned 2008 Decompression of med jayla nerve Elisabet Gurpreet Comment on above: right Decompression of med jayla nerve Groverjonathan Simons Comment on above: Outside Source Comme nt: Comment on above: right Hysterectomy Elisabet Gurpreet Immunizations Immunization Date Immunization Notes Care Provider Arik espinoza NEGATED: Highlighted row has not occurred!12-29-2022 influenza virus vaccine, unspecified formulation Groverjonathan Simons [facility] Payers Date Payer Category Payer Medicare [id number] 1955 Unknown [id number] 2.16.84 [id number] 1955 Unknown [id number] 2.16.8 [id number] 1955 Unknown [id number] 2.16.8 [id number] 1955 Unknown [id number] 2.16.8 [id number] 1955 Unknown [id number] 2.16.8 [id number] 1955 Unknown [id number] 2.16.8 [id number] 1955 Unknown [id number] 2.16.8 [id number] 1955 Unknown [id number] 2.16.8 [id number] Social History Date Type Detail Facility Start: 09-23-2022 End: 09-28-2023 Tobacco smoking status Never smoked tobacco (finding) [facility] Tobacco smoking status Never [facility] Sex Assigned At Female [facility] Clinical Note 09-28-2023 Note Date & Type Note Facility 09-28-2023 Note Patient Education Cardiovascular Hypertension, Adult High blood pressure (hypertension) is when the force of blood pumping through the arteries is too strong. The arteries are the blood vessels that carry blood from the heart throughout the body. Hypertension forces the heart to work harder to pump blood and may cause arteries to become narrow or stiff. Untreated or uncontrolled hypertension can lead to a heart attack, heart failure, a stroke, kidney disease, and other problems. A blood pressure reading consists of a higher number over a lower number. Ideally, your blood pressure should be below 120/80. The first ( top ) number is called the systolic pressure. It is a measure of the pressure in your arteries as your heart beats. The second ( bottom ) number is called the diastolic pressure. It is a measure of the pressure in your arteries as the heart relaxes. What are the causes? The exact cause of this condition is not known. There are some conditions that result in high blood pressure. What increases the risk? Certain factors may make you more likely to develop high blood pressure. Some of these risk factors are under your control, including: ? Smoking. ? Not getting enough exercise or physical activity. ? Being overweight. ? Having too much fat, sugar, calories, or salt (sodium) in your diet. ? Drinking too much alcohol. Other risk factors include: ? Having a personal history of heart disease, diabetes, high cholesterol, or kidney disease. ? Stress. ? Having a family history of high blood pressure and high cholesterol. ? Having obstructive sleep apnea. ? Age. The risk increases with age. What are the signs or symptoms? High blood pressure may not cause symptoms. Very high blood pressure (hypertensive crisis) may cause: ? Headache. ? Fast or irregular heartbeats (palpitations). ? Shortness of breath. ? Nosebleed. ? Nausea and vomiting. ? Vision changes. ? Severe chest pain, dizziness, and seizures. How is this diagnosed? This condition is diagnosed by measuring your blood pressure while you are seated, with your arm resting on a flat surface, your legs uncrossed, and your feet flat on the floor. The cuff of the blood pressure monitor will be placed directly against the skin of your upper arm at the level of your heart. Blood pressure should be measured at least twice using the same arm. Certain conditions can cause a difference in blood pressure between your right and left arms. If you have a high blood pressure reading during one visit or you have normal blood pressure with other risk factors, you may be asked to: ? Return on a different day to have your blood pressure checked again. ? Monitor your blood pressure at home for 1 week or longer. If you are diagnosed with hypertension, you may have other blood or imaging tests to help your health care provider understand your overall risk for other conditions. How is this treated? This condition is treated by making healthy lifestyle changes, such as eating healthy foods, exercising more, and reducing your alcohol intake. You may be referred for counseling on a healthy diet and physical activity. Your health care provider may prescribe medicine if lifestyle changes are not enough to get your blood pressure under control and if: ? Your systolic blood pressure is above 130. ? Your diastolic blood pressure is above 80. Your personal target blood pressure may vary depending on your medical conditions, your age, and other factors. Follow these instructions at home: Eating and drinking ? Eat a diet that is high in fiber and potassium, and low in sodium, added sugar, and fat. An example of this eating plan is called the DASH diet. DASH stands for Dietary Approaches to Stop Hypertension. To eat this way: ? Eat plenty of fresh fruits and vegetables. Try to fill one half of your plate at each meal with fruits and vegetables. ? Eat whole grains, such as whole-wheat pasta, brown rice, or whole-grain bread. Fill about one fourth of your plate with whole grains. ? Eat or drink low-fat dairy products, such as skim milk or low-fat yogurt. ? Avoid fatty cuts of meat, processed or cured meats, and poultry with skin. Fill about one fourth of your plate with lean proteins, such as fish, chicken without skin, beans, eggs, or tofu. ? Avoid pre-made and processed foods. These tend to be higher in sodium, added sugar, and fat. ? Reduce your daily sodium intake. Many people with hypertension should eat less than 1,500 mg of sodium a day. ? Do not drink alcohol if: ? Your health care provider tells you not to drink. ? You are , may be , or are planning to become . ? If you drink alcohol: ? Limit how much you have to: ? 0?1 drink a day for women. ? 0?2 drinks a day for men. ? Know how much alcohol is in your drink. In the [place] one drink equals one 12 oz bottle of beer (355 mL), one 5 oz glass of wine (148 mL), (more content not included)... [facility] Evaluation + Plan note Note Date & Type Note Facility Evaluation + Plan note Future Appointments Appointment Date:10/28/2022 01:20:00 PM Scheduled Provider:Grover Simons MD Location:[facility] Appointment Type: Open Appointment Date:09/28/2023 08:00:00 AM Scheduled Provider: Location:[facility] Appointment Type: Medicare Wellness Subsequent Diagnostic Tests PendingHCV Antibody RFX to Quant PCR 09/23/22 [facility] Evaluation + Plan note Laboratory Note Date & Type Note Facility Evaluation + Plan note Future Appointments Appointment Date:11/23/2023 01:00:00 PM Scheduled Provider:Grover Simons MD Location:[facility] [place] Appointment Type:FM Open Appointment Date:09/29/2024 08:00:00 AM Scheduled Provider: Location:[facility] [place] Appointment Type:FM Medicare Wellness Subsequent Future Scheduled TestsComprehensive Metabolic Panel 09/28/23 [facility] Hospital course Narrative Note Date & Type Note Facility Hospital course Narrative No data available for this section [facility] Hospital Discharge instructions Note Date & Type Note Facility Hospital Discharge instructions No data available for this section [facility] Progress note Note Date & Type Note Facility Progress note No data available for this section [facility] Summary Purpose Family History No Family History Records FoundNo Family History Records Found No data available for this section Advance Directives No Advanced Directives Records FoundNo Advanced Directives Records Found Additional Source Comments INFORMATION SOURCE (unrecogn ized section and content) DATE CREATED AUTHOR 08/29/2021 [facility] DATE CREATED AUTHOR AUTHOR'S ORGANIZ ATION 10/01/2023 [facility] Patient Care team informatio n (unrecognized section and content) Personnel Name: Grover Simons MD Address: Address: [address] [place], [place] [address] Personnel Name: Grover Simons MD Address: Address: [address] [place] [address] FOR RECORDS PERTAINING TO PATIENTS WHO ARE OR HAVE BEEN ENROLLED IN A CHEMICAL DEPENDENCY/SUBSTANCEABUSE PROGRAM, SOME INFORMATION MAY BE OMITTED. This clinical summary was aggregated from multiple sources. Caution should be exercised in using it in the provision of clinical care. This summary normalizes information from multiple sources, and as a consequence, information in this document may materially change the coding, format and clinical context of patient data. In addition, data may be omitted in some cases. CLINICAL DECISIONS SHOULD BE BASED ON THE PRIMARY CLINICAL RECORDS. [facility] [employer] provides no warranty or guarantee of the accuracy or completeness of information in this document.
--- NOTE | 2023-10-06 07:50 | XR_ITS ---
[address] [address] Patient Name: JEAN GASTON MRN: [id number] date: 1955 Sex: F Assigned Patient Location: [facility] Current Patient Location: [facility] Accession/Order Number: [id number] Exam Date: 10/06/2023 08:04 Report Date: 10/06/2023 08:41 At the request of: KATLIN ORONA Procedure: XR DEXA axial skeleton EXAMINATION: XR DEXA axial skeleton HISTORY: Primary Ovarian Failure E28.39 COMPARISON: DEXA bone densitometry 01/12/2019 TECHNIQUE: Dual-energy X-ray absorptiometry (DXA) was performed. FINDINGS: SPINE ANALYSIS: Average bone mineral density is 1.244 g/cm2. T-score (standard deviation relative to young adult mean): 0.4 . -3.5% change since prior study. HIP ANALYSIS: Lowest bone mineral density is within the left femoral neck, 0.944 g/cm2. T-score (standard deviation relative to young adult mean): -0.7 . -8.5% change since prior study. XR/XR DEXA axial skeleton IMPRESSION: World Health Organization Classification: Normal - Low Fracture Risk FRAX: Cannot be calculated. Pharmacologic treatment recommendations * No uniform recommendation applies to all patients. Management plans must be individualized. * Consider initiating pharmacologic treatment in postmenopausal women and men >= 50 years of age who have the following: Primary fracture prevention: * T-score <= - 2.5 at the femoral neck, total hip, lumbar spine, 33% radius (some uncertainty with existing data) by DXA. * Low bone mass (osteopenia: T-score between - 1.0 and - 2.5) at the femoral neck or total hip by DXA with a 10-year hip fracture risk >= 3% or a 10-year major osteoporosis-related fracture risk >= 20% (i.e., clinical vertebral, hip, forearm, or proximal humerus) based on the [place]-adapted FRAXregistered model. Secondary fracture prevention: * Fracture of the hip or vertebra regardless of BMD [4, 5]. * Fracture of proximal humerus, pelvis, or distal forearm in persons with low bone mass (osteopenia: T-score between - 1.0 and - 2.5). The decision to treat should be individualized in persons with a fracture of the proximal humerus, pelvis, or distal forearm who do not have osteopenia or low BMD [12, 13]. Raji MS, Mike SL, Asim KL, Nkechi EM, Judit KG, AJ, Carlos ES. The clinician's guide to prevention and treatment of osteoporosis. Osteoporos Int. 2021;33(10):0341-6031. doi: 10.1007/s43328-025-76312-a. Epub 2021Jul 11. Erratum in: Osteoporos Int. 2021Oct 10;: PMID: [id number]; PMCID: [id number]. Electronically authenticated by: BRIAN DOUGHERTY Date: 10/06/2023 08:41
== END 2023-10-06 07:45 | disposition home or self-care (01) ==
LOC: RAD 07:45
PROVIDERS: PCP Family Medicine; Visit Provider Family Medicine
DX: E28.39 Other primary ovarian failure (principal)
CPT/HCPCS: 77080